=== PATIENT | male | born 2000 | race African-American/Black ===

== ENCOUNTER 2020-10-17 15:30 | Emergency (ER) | payer BC, SELFPAY ==
--- NOTE | ~2020-10-17 | XR_ITS ---
XR finger 3rd LT min 2V 10/17/2020 15:49 Indication: Left third finger pain after catching football Procedure: 4 views left third finger Comparison: No prior studies for comparison. Findings: There is a nondisplaced fracture dorsal base left third middle phalanx. Moderate adjacent s oft tissue swelling. No other fractures. No foreign bodies. Impression: 1: Nondisplaced fracture dorsal base left third middle phalanx. Reviewed, dictated and finalized at location A. PAK MACHINE OPERATOR Impression: 1: Nondisplaced fracture dorsal base left third middle phalanx.
[2020-10-17 15:38] VITALS: BP 125/61; PULSE 77; RESP 16; TEMP 36.6; O2SAT 100
--- NOTE | 2020-10-17 16:06 | ED.UPPEXIN ---
HPI - Extremity Injury (Upper) General Chief Complaint: Extremity Injury, Upper Stated Complaint: INJURED FINGER Time Seen by Provider: 10/17/20 16:00 Source: patient and RN notes reviewed Mode of arrival: ambulatory Limitations: no limitations History of Present Illness HPI narrative: Patient presents today complaining of an injury to the left third finger that was sustained yesterday while playing football. Patient believes he may have jammed the finger. Currently rates his pain 4/10 has been taking Aleve and applying ice without much relief. Denies numbness or tingling. Pain increases with movement. Patient has had the finger suman taped as well. MD complaint: injury to: left and finger Related Data Allergies Allergy/AdvReac Type Severity Reaction Status Date / Time No Known Allergies Allergy Verified 10/17/20 15:53 Review of Systems Review of Systems: Narrative: CONSTITUTIONAL: Denies body aches, fever, chills, or sweats. EYES: Denies visual changes, redness, or discharge. ENT: Denies rhinorrhea, congestion, sore throat, or otalgia. CARDIOVASCULAR: Denies chest pain, palpitations, or edema. RESPIRATORY: Denies cough or dyspnea. GASTROINTESTINAL: Denies abdominal pain, nausea, vomiting, or diarrhea. GENITOURINARY: Denies dysuria or hematuria. SKIN: Denies rash, itching, or wounds. MUSCULOSKELETAL: Denies back pain, or myalgia. + Left third finger injury NEUROLOGIC: Denies headache, numbness, tingling, or weakness. PSYCH: Denies depression or anxiety. [facility] Past Medical History Medical History Inguinal hernia Left wrist fracture Sickle cell anemia Surgical History Surgical History H/O inguinal hernia repair [place] teeth removed Social History Social History (Updated 10/08/20 @ 11:13 by Alisson Crook [facility] [address]) Smoking status: Never smoker Second hand tobacco smoke exposure: No Alcohol intake: never Substance use: never Substance use type: does not use Gender identity (if verbalized by the patient): Male Comments At time of signature, I have reviewed and agree with nursing past medical, surgical, social and family history unless otherwise noted. Please see nursing chart for further information. There is no relevant family history pertinent to the presenting complaint Exam Narrative: Exam Narrative: GENERAL: Well-appearing, well-nourished, and in no acute distress. HEAD: Normocephalic, atraumatic. EYES: EOMI. No redness or drainage. Conjunctivae normal. ENT: Mucous membranes pink and moist. NECK: Normal AROM. CHEST: No respiratory distress. EXTREMITIES: Left third finger: Tenderness to the PIP, middle and proximal phalanx as well as tenderness and mild to moderate edema to these areas. No ecchymosis or erythema noted. AROM is limited due to pain and swelling. Distal sensation intact. Capillary refill normal. Radial pulse normal. SKIN: Warm, dry, no rash. Capillary refill normal. Normal skin turgor. NEURO: No focal deficits. Alert and oriented x3. Gait steady. PSYCH: Normal affect. No signs of depression or anxiety. Course Vital Signs Vital signs: Vital Signs Temperature 98 F 10/17/20 15:38 Pulse Rate 77 10/17/20 15:38 Respiratory Rate 16 10/17/20 15:38 Blood Pressure 125/61 10/17/20 15:38 Pulse Oximetry 100 10/17/20 15:38 Temperature 98 F 10/17/20 15:38 Pulse Rate 77 10/17/20 15:38 Respiratory Rate 16 10/17/20 15:38 Blood Pressure 125/61 10/17/20 15:38 Pulse Oximetry 100 10/17/20 15:38 Reviewed. Pt has been instructed to follow up with his PCP regarding his elevated blood pressure today. Procedures Orthopedic Splinting/Casting Injury #1: Splinting/Casting Date: 10/17/20 Splinting/Casting Time: 16:15 Side: left Upper Extremity Injury Location: finger Splint: prefabricated Pre-Formed: meta
== END 2020-10-17 16:28 | disposition home or self-care (01) ==
PROVIDERS: Emergency Provider Nurse Practitioner; PCP Family Medicine
DX: S62.653A Nondisplaced fracture of middle phalanx of left middle finger, initial encounter for closed fracture (principal); D57.1 Sickle-cell disease without crisis; Y93.61 Activity, american tackle football; W22.01XA Walked into wall, initial encounter
CPT/HCPCS: 29130; 73140; 99214; G0463

== ENCOUNTER 2020-10-20 18:09 | Emergency (ER) | payer BC, SELFPAY ==
[2020-10-20 18:10] VITALS: BP 151/69; PULSE 82; RESP 19; TEMP 34.4; O2SAT 99
--- NOTE | 2020-10-20 18:53 | ED.GENADULT ---
HPI - General Adult General Chief complaint: Unspecified Stated complaint: sickle cell pain Time Seen by Provider: 10/20/20 18:38 Source: patient Mode of arrival: ambulatory Limitations: no limitations History of Present Illness HPI narrative: This is a 20 year old male that presents to the ER for sickle cell crisis. Reports he started to have pain this afternoon. Pain started in his low back. Reports he now has pain in his right leg. Reports this is typical for his pain crisis. No injuries or trauma. Reports he took an ibuprofen with little relief. He does not have a Securities Teller currently and is not on any medications for sickle cell. Denies fever, chest pain, shortness of breath, abdominal pain, vomiting, dysuria, weakness, or numbness. Related Data Allergies Allergy/AdvReac Type Severity Reaction Status Date / Time No Known Allergies Allergy Verified 10/20/20 18:36 Review of Systems Review of Systems: Narrative: CONSTITUTIONAL: Denies fever CARDIOVASCULAR: Denies chest pain RESPIRATORY: Denies dyspnea. GASTROINTESTINAL: Denies abdominal pain, nausea, vomiting GENITOURINARY: Denies dysuria MUSCULOSKELETAL: Reports back pain, joint pain, and myalgia. NEUROLOGIC: Denies numbness, or weakness. All systems reviewed & are unremarkable except as noted in HPI and below PMFSH Past Medical History Medical History Inguinal hernia Left wrist fracture Sickle cell anemia Surgical History Surgical History H/O inguinal hernia repair [place] teeth removed Social History Social History (Updated 10/08/20 @ 11:13 by Alisson Crook [facility]) Smoking status: Never smoker Second hand tobacco smoke exposure: No Alcohol intake: never Substance use: never Substance use type: does not use Gender identity (if verbalized by the patient): Male Exam Narrative: Exam Narrative: GENERAL: Well-appearing, well-nourished, and in no acute distress. HEAD: Normocephalic, atraumatic. EYES: EOMI. CHEST: Clear to auscultation. No respiratory distress. No wheezes rales or rhonchi HEART: Regular rate and rhythm. No murmur heard. Normal peripheral pulses. ABDOMEN: Soft, nontender, nondistended, normal active bowel sounds. BACK: No midline spinal tenderness EXTREMITIES: Normal range of motion. No edema or erythema. Normal DP pulses. Normal sensation SKIN: Warm, dry, no rash. NEURO: No focal deficits. Alert and oriented x3. PSYCH: Normal mood and affect Course Vital Signs Vital signs: Vital Signs Temperature 93.9 F L 10/20/20 18:10 Pulse Rate 82 10/20/20 18:10 Respiratory Rate 19 10/20/20 18:10 Blood Pressure 151/69 H 10/20/20 18:10 Pulse Oximetry 99 10/20/20 18:10 Temperature 98.2 F 10/20/20 19:49 Pulse Rate 82 10/20/20 18:10 Respiratory Rate 19 10/20/20 18:10 Blood Pressure 151/69 H 10/20/20 18:10 Pulse Oximetry 99 10/20/20 18:10 Medical Decision Making MDM Narrative Medical decision making narrative: Patient presents emergency department for sickle cell crisis. Reports pain in his leg which is usual for him. He is afebrile and nontoxic-appearing. CBC is without leukocytosis. Appears to be stable with hemoglobin of 12.9. Metabolic panel with mild elevation in creatinine above baseline, patient hydrated while in the ED. UA without evidence of infection. Patient given IV pain medication with relief. Will be sent home on oral medicines as needed. Was instructed on the importance of following up with a pt skilled. He was given warnings to return to the ER Vital Signs Vital Signs: Vital Signs Temperature 93.9 F L 10/20/20 18:10 Pulse Rate 82 10/20/20 18:10 Respiratory Rate 19 10/20/20 18:10 Blood Pressure 151/69 H 10/20/20 18:10 Pulse Oximetry 99 10/20/20 18:10 Temperature 98.2 F 10/20/20 19:49 Pulse Rate 82 10/20/20 18:10 Respiratory Rate 19 10/20/20 18
[2020-10-20 18:54] LABS: Basophils Absolute Auto 0.1 K/mm3 (0.0-0.1); Basophils Percent Auto 0.8 % (0.2-1.2); Eosinophils Percent Auto 0.3 % (0-4.4); Hemoglobin 12.9 g/dL (14.0-18.0); Immature Granulocyte Absolute 0.34 K/mm3 (0.00-0.031); Immature Granulocyte Percent A 3.8 % (0-0.5); Immature Reticulocyte Fraction 26.2 % (3.0-15.9); Lymphocytes Absolute Auto 1.53 K/mm3 (0.9-3.2); Lymphocytes Percent Auto 16.9 % (18.3-44.2); Mean Corpuscular HGB Conc 35.8 g/dl (32-36); Mean Corpuscular Hemoglobin 26.3 pg (26-34); Mean Corpuscular Volume 73.3 fl (80-100); Mean Platelet Volume 10.2 fl (7.4-10.4); Monocytes Absolute Auto 0.3 K/mm3 (0.1-0.6); Monocytes Percent Auto 3.4 % (2.6-8.5); Neutrophils Absolute Auto 6.8 K/mm3 (1.3-6.7); Neutrophils Percent Auto 74.8 % (45.5-73.1); Nucleated Red Blood Cells Absolute Auto 0.1 K/mm3 (0.0-0.012); Nucleated Red Blood Cells Perc 0.6 % (0.0-0.2); Platelet Count Result 145 k/mm3 (150-375); Red Blood Count 4.91 M/mm3 (4.6-6.20); Red Cell Distribution Width 14.8 % (11.5-14.5); Reticulocyte Hemoglobin Conten 31.1 pg (28.2-35.7); Reticulocyte Percent 3.92 % (0.7-4.3); Reticulocytes Absolute 0.19 B/L (32.2-175.7); White Blood Count 9.1 K/mm3 (4.5-10.0)
[2020-10-20] MEDS: SODIUM CHLORIDE 0.9% IV 1,000 ML 999 ML IV CONT ×2 (18:58→20:26)
[2020-10-20] MEDS: ONDANSETRON INJ 4 MG/2 ML VIAL IV PUSH (18:59)
[2020-10-20] MEDS: MORPHINE SULFATE (*CRX) 4 MG/ML INJ IV PUSH ×2 (18:59→20:26)
[2020-10-20 19:08] LABS: Albumin Level 4.5 g/dL (3.5-5.1); Alkaline Phosphatase 66 U/L (38-126); Anion Gap 11 mmol/L (8-16); Aspartate Amino Transferase 37 U/L (17-59); Bilirubin,Total 1.9 mg/dL (0.2-1.3); Blood Urea Nitrogen 18 mg/dL (9-20); Calcium 9.9 mg/dL (8.4-10.2); Carbon Dioxide 29 mmol/L (22-30); Chloride 100 mmol/L (98-107); Estimated CRCL calculation 81 ml/min; Estimated Glomerular Filt Rate > 60; Glucose 90 mg/dL (75-110); Potassium 4.1 mmol/L (3.4-5.0); Sodium 140 mmol/L (137-145)
[2020-10-20 19:17] LABS: Alanine Aminotransferase 27 U/L (4-50)
[2020-10-20 19:49] VITALS: TEMP 36.8
[2020-10-20 20:17] LABS: Add Urine Microscopic? NO; Appearance Urine Clear (Clear); Bilirubin Urine Negative (Negative); Blood Urine Negative (Negative); Color Urine Straw (Yellow); Glucose Urine UA Negative (Negative); Ketones Urine Negative (Negative); Leukocyte Esterase Ur Negative LEU/UL (Negative); Nitrate Urine Negative (Negative); Protein Urine Negative (Negative); Specific Grav Ur 1.014 (1.001-1.035); Urobilinogen Urine Negative mg/dL (<2.0)
[2020-10-20] MEDS: HYDROcodone/acetaminophen (*CRX) 5-325 MG TABLET 1 TAB PO (21:41)
[2020-10-20 22:11] VITALS: BP 138/64; PULSE 77; RESP 18; O2SAT 98
[2020-10-22 10:38] LABS: Lactate Dehydrogenase 513 U/L (313-618)
== END 2020-10-20 22:15 | disposition home or self-care (01) ==
PROVIDERS: Physician Assistant; Emergency Provider Emergency Medicine; PCP Family Medicine
DX: D57.00 Hb-SS disease with crisis, unspecified (principal)
CPT/HCPCS: 36415; 80053; 81003; 83615; 85025; 85046; 85610; 85730; 96361; 96365; 96375; 96376; 99284; A9270; J0131; J2270; J2405; J7030

== ENCOUNTER 2020-10-21 21:49 | Emergency (ER) | payer BC, SELFPAY ==
[2020-10-21 21:50] VITALS: BP 163/97; PULSE 86; RESP 18; TEMP 36.1; O2SAT 100
[2020-10-21] MEDS: SODIUM CHLORIDE 0.9% IV 1,000 ML 999 ML IV CONT (22:31)
[2020-10-21] MEDS: KETOROLAC 30 MG/ML VIAL (*BKC) IV PUSH (22:32)
[2020-10-21] MEDS: MORPHINE SULFATE (*CRX) 4 MG/ML INJ IV PUSH (22:32)
[2020-10-21 22:36] LABS: Basophils Percent Auto 0.3 % (0.2-1.2); Eosinophils Absolute Auto 0.1 K/mm3 (0-0.3); Hematocrit 38.9 % (42.0-52.0); Hemoglobin 13.9 g/dL (14.0-18.0); Immature Granulocyte Absolute 0.04 K/mm3 (0.00-0.031); Immature Granulocyte Percent A 0.5 % (0-0.5); Immature Reticulocyte Fraction 25.2 % (3.0-15.9); Lymphocytes Absolute Auto 1.41 K/mm3 (0.9-3.2); Lymphocytes Percent Auto 16.2 % (18.3-44.2); Mean Corpuscular HGB Conc 35.7 g/dl (32-36); Mean Corpuscular Hemoglobin 26.1 pg (26-34); Mean Corpuscular Volume 73.1 fl (80-100); Mean Platelet Volume 10.9 fl (7.4-10.4); Monocytes Absolute Auto 0.4 K/mm3 (0.1-0.6); Monocytes Percent Auto 4.1 % (2.6-8.5); Neutrophils Absolute Auto 6.8 K/mm3 (1.3-6.7); Neutrophils Percent Auto 77.9 % (45.5-73.1); Platelet Count Result 168 k/mm3 (150-375); Red Blood Count 5.32 M/mm3 (4.6-6.20); Red Cell Distribution Width 14.9 % (11.5-14.5); Reticulocyte Hemoglobin Conten 29.2 pg (28.2-35.7); Reticulocyte Percent 3.62 % (0.7-4.3); Reticulocytes Absolute 0.19 B/L (32.2-175.7); White Blood Count 8.7 K/mm3 (4.5-10.0)
--- NOTE | 2020-10-21 22:44 | ED.GENADULT ---
HPI - General Adult General Chief complaint: Unspecified Stated complaint: sickle cell pain Time Seen by Provider: 10/21/20 22:04 History of Present Illness HPI narrative: Patient is a 20-year-old gentleman who presents the emergency department with chief complaint of sickle cell pain crisis patient reports he no longer history of being diagnosed with sickle cell disorder and reports that he was seen in the emergency department yesterday for pain in his right hip and his right knee. The patient states this is the typical location where he develops pain states he was given IV pain medications yesterday and was discharged home. Currently does not have a local male infertility specialist. Patient reports that is only primary treatment regimen is folic acid and reports that he is not on any other long-term treatment medication. Patient denies fever denies chest pain denies shortness of breath. Related Data Allergies Allergy/AdvReac Type Severity Reaction Status Date / Time No Known Allergies Allergy Verified 10/21/20 22:42 Review of Systems Review of Systems: Narrative: A 10 system review of systems was completed on the patient and is negative except for what is stated in the HPI. Nursing and ancillary documentation was reviewed. [facility] Past Medical History Medical History Inguinal hernia Left wrist fracture Sickle cell anemia Sickle cell crisis Surgical History Surgical History H/O inguinal hernia repair [place] teeth removed Social History Social History Smoking status: Never smoker Second hand tobacco smoke exposure: No Alcohol intake: never Substance use: never Substance use type: does not use Gender identity (if verbalized by the patient): Male Sexual Orientation (if Verbalized by the Patient): Straight or Heterosexual Exam Narrative: Exam Narrative: GENERAL: Well-appearing, well-nourished, and in no acute distress. HEAD: Normocephalic, atraumatic. EYES: PERRLA and EOMI. ENT: Nares clear, no rhinorrhea or epistaxis. Mucous membranes moist. NECK: Supple. CHEST: Clear to auscultation. No respiratory distress. HEART: Regular rate and rhythm. No murmur heard. Normal peripheral pulses. ABDOMEN: Soft, nontender, nondistended, normal active bowel sounds. EXTREMITIES: Normal range of motion. No edema. SKIN: Warm, dry, no rash. NEURO: No focal deficits. Alert and oriented x3. PSYCH: Normal mood and affect. Course Vital Signs Vital signs: Vital Signs Temperature 36.1 C L 10/21/20 21:50 Pulse Rate 86 10/21/20 21:50 Respiratory Rate 18 10/21/20 21:50 Blood Pressure 163/97 H 10/21/20 21:50 Pulse Oximetry 100 10/21/20 21:50 Temperature 36.1 C L 10/21/20 21:50 Pulse Rate 86 10/21/20 21:50 Respiratory Rate 18 10/21/20 21:50 Blood Pressure 163/97 H 10/21/20 21:50 Pulse Oximetry 100 10/21/20 21:50 Medical Decision Making Vital Signs Vital Signs: Vital Signs Temperature 36.1 C L 10/21/20 21:50 Pulse Rate 86 10/21/20 21:50 Respiratory Rate 18 10/21/20 21:50 Blood Pressure 163/97 H 10/21/20 21:50 Pulse Oximetry 100 10/21/20 21:50 Temperature 36.1 C L 10/21/20 21:50 Pulse Rate 86 10/21/20 21:50 Respiratory Rate 18 10/21/20 21:50 Blood Pressure 163/97 H 10/21/20 21:50 Pulse Oximetry 100 10/21/20 21:50 Lab Data Result diagrams: 10/21/20 22:19 10/21/20 22:19 Labs: Lab Results 10/21/20 10/21/20 10/21/20 Range/Units 22:19 22:19 22:28 WBC 8.7 (4.5-10.0) K/mm3 RBC 5.32 (4.6-6.20) M/mm3 Hgb 13.9 L (14.0-18.0) g/dL Hct 38.9 L (42.0-52.0) % MCV 73.1 L (80-100) fl MCH 26.1 (26-34) pg MCHC 35.7 (32-36) g/dl RDW 14.9 H (11.5-14.5) % Plt Count 168 (150-375) k/mm3 MPV 10.9 H (7.4-10.4)
[2020-10-21 22:46] LABS: Alanine Aminotransferase 25 U/L (4-50); Albumin Level 4.7 g/dL (3.5-5.1); Alkaline Phosphatase 51 U/L (38-126); Anion Gap 8 mmol/L (8-16); Aspartate Amino Transferase 35 U/L (17-59); Blood Urea Nitrogen 13 mg/dL (9-20); Calcium 9.6 mg/dL (8.4-10.2); Carbon Dioxide 32 mmol/L (22-30); Chloride 101 mmol/L (98-107); Estimated CRCL calculation 81 ml/min; Estimated Glomerular Filt Rate > 60; Glucose 101 mg/dL (75-110); Potassium 3.8 mmol/L (3.4-5.0); Sodium 141 mmol/L (137-145)
[2020-10-22 00:51] VITALS: BP 132/74; PULSE 88; RESP 18; O2SAT 100
[2020-10-22] MEDS: MORPHINE SULFATE (*CRX) 4 MG/ML INJ IV PUSH (00:51)
== END 2020-10-22 00:53 | disposition home or self-care (01) ==
PROVIDERS: Emergency Provider Emergency Medicine; PCP Family Medicine
DX: D57.00 Hb-SS disease with crisis, unspecified (principal)
CPT/HCPCS: 36415; 80053; 83605; 85025; 85046; 96361; 96374; 96375; 96376; 99284; J1885; J2270; J7030

== ENCOUNTER 2021-08-16 11:06 | Emergency (ER) | payer BC, SELFPAY ==
[2021-08-16 11:08] VITALS: BP 136/81; PULSE 82; RESP 17; TEMP 36.7; O2SAT 98
[2021-08-16 12:03] LABS: Basophils Percent Auto 0.6 % (0.2-1.2); Eosinophils Absolute Auto 0.1 K/mm3 (0-0.3); Eosinophils Percent Auto 1.9 % (0-4.4); Hematocrit 36.3 % (42.0-52.0); Hemoglobin 13.1 g/dL (14.0-18.0); Immature Granulocyte Absolute 0.01 K/mm3 (0.00-0.031); Immature Granulocyte Percent A 0.2 % (0-0.5); Immature Reticulocyte Fraction 19.1 % (3.0-15.9); Lymphocytes Absolute Auto 1.27 K/mm3 (0.9-3.2); Lymphocytes Percent Auto 26.2 % (18.3-44.2); Mean Corpuscular HGB Conc 36.1 g/dl (32-36); Mean Corpuscular Hemoglobin 26.1 pg (26-34); Mean Corpuscular Volume 72.3 fl (80-100); Mean Platelet Volume 10.6 fl (7.4-10.4); Monocytes Absolute Auto 0.3 K/mm3 (0.1-0.6); Monocytes Percent Auto 6.4 % (2.6-8.5); Neutrophils Absolute Auto 3.1 K/mm3 (1.3-6.7); Neutrophils Percent Auto 64.7 % (45.5-73.1); Platelet Count Result 184 k/mm3 (150-375); Red Blood Count 5.02 M/mm3 (4.6-6.20); Red Cell Distribution Width 14.7 % (11.5-14.5); Reticulocyte Hemoglobin Conten 29.4 pg (28.2-35.7); Reticulocyte Percent 3.01 % (0.7-4.3); Reticulocytes Absolute 0.15 B/L (32.2-175.7); White Blood Count 4.8 K/mm3 (4.5-10.0)
[2021-08-16] MEDS: MORPHINE SULFATE (*CRX) 4 MG/ML INJ IV PUSH ×2 (12:04→15:19)
[2021-08-16] MEDS: SODIUM CHLORIDE 0.9% IV 1,000 ML 999 ML IV CONT (12:05)
[2021-08-16 12:22] LABS: Alanine Aminotransferase 19 U/L (4-50); Albumin Level 4.8 g/dL (3.5-5.1); Alkaline Phosphatase 44 U/L (38-126); Anion Gap 9 mmol/L (8-16); Aspartate Amino Transferase 30 U/L (17-59); Blood Urea Nitrogen 13 mg/dL (9-20); Calcium 9.5 mg/dL (8.4-10.2); Carbon Dioxide 26 mmol/L (22-30); Chloride 106 mmol/L (98-107); Creatine Kinase 110 U/L (55-170); Estimated CRCL calculation 93 ml/min; Estimated Glomerular Filt Rate > 60; Glucose 91 mg/dL (65-110); Lactate Dehydrogenase 448 U/L (313-618); Potassium 4.5 mmol/L (3.4-5.0); Sodium 141 mmol/L (137-145)
[2021-08-16 13:52] VITALS: BP 131/80; PULSE 67; RESP 14; O2SAT 98
--- NOTE | 2021-08-16 15:05 | ED.GENADULT ---
HPI - General Adult General Chief complaint: Unspecified <Jason Ruff PA-C - Last Filed: 08/16/21 15:10> Stated complaint: sickle cell crisis <Jason Ruff PA-C - Last Filed: 08/16/21 15:10> Time Seen by Provider: 08/16/21 11:26 <Jason Ruff PA-C - Last Filed: 08/16/21 15:10> Source: patient, RN notes reviewed and old records reviewed <Jason Ruff PA-C - Last Filed: 08/16/21 15:10> Mode of arrival: ambulatory <Jason Ruff PA-C - Last Filed: 08/16/21 15:10> Limitations: no limitations <Jason Ruff PA-C - Last Filed: 08/16/21 15:10> History of Present Illness HPI narrative: Patient is a 21-year-old male who presents with left calf pain leg pain noting that the pain is been present for the last couple of days believes it to be possibly related to his sickle cell disease he has been working out and believes that that may be causing the discomfort and exacerbation he denies other complaints injuries or trauma presents nondistressed has not taken anything other than ibuprofen for his symptoms he is followed by primary care and hematology <Jason Ruff PA-C - Last Filed: 08/16/21 15:10> Related Data Allergies/adverse reactions: Allergies Allergy/AdvReac Type Severity Reaction Status Date / Time No Known Allergies Allergy Verified 08/16/21 11:12 <Jason Ruff PA-C - Last Filed: 08/16/21 15:10> [facility] Past Medical History Medical History: Medical History Inguinal hernia Left wrist fracture Sickle cell anemia Sickle cell crisis <Jason Ruff PA-C - Last Filed: 08/16/21 15:10> Surgical History Surgical History: Surgical History H/O inguinal hernia repair [place] teeth removed <Jason Ruff PA-C - Last Filed: 08/16/21 15:10> Social History Social History: Social History Smoking status: Never smoker Second hand tobacco smoke exposure: No Alcohol intake: never Substance use: never Substance use type: does not use Gender identity (if verbalized by the patient): Male Sexual Orientation (if Verbalized by the Patient): Straight or Heterosexual <Jason Ruff PA-C - Last Filed: 08/16/21 15:10> Exam Narrative: GENERAL: Well-appearing, well-nourished, and in no acute distress. HEAD: Normocephalic, atraumatic. EYES: PERRLA and EOMI. ENT: Nares clear, no rhinorrhea or epistaxis. Mucous membranes moist. CHEST: Clear to auscultation. No respiratory distress. No wheezes rales or rhonchi HEART: Regular rate and rhythm. No murmur heard. Normal peripheral pulses. ABDOMEN: Soft, nontender, nondistended EXTREMITIES: Normal range of motion. No edema. SKIN: Warm, dry, no rash. NEURO: No focal deficits. Alert and oriented x3. Cranial nerves II through XII grossly intact. Neurovascularly intact. Capillary refill less than 2 seconds PSYCH: Normal mood and affect. <Jason Ruff PA-C - Last Filed: 08/16/21 15:10> Course Course Emergency Course: Patient evaluated the emergency department with sickle cell crisis related pain no concerning findings in the evaluation was hydrated given pain medicines feeling better at this time and comfortable to go home he is aware of case findings treatment plan and diagnosis provided with reasons to return ABCs and vital signs intact and stable afebrile nontoxic-appearing nondistressed <Jason Ruff PA-C - Last Filed: 08/16/21 15:10> Vital Signs Vital signs: Vital Signs Temperature 98.1 F 08/16/21 11:08 Pulse Rate 82 08/16/21 11:08 Respiratory Rate 17 08/16/21 11:08 Blood Pressure 136/81 08/16/21 11:08 Pulse Oximetry 98 08/16/21 11:08 Temperature 98.1 F 08/16/21 11:08 Pulse Rate 60 08/16/21 15:50 Respiratory Rate 14 08/16/21 15:50 Blood Pressure 1
[2021-08-16 15:31] VITALS: BP 129/74; PULSE 68; RESP 12; O2SAT 100
[2021-08-16 15:50] VITALS: PULSE 60; RESP 14; O2SAT 98
== END 2021-08-16 15:50 | disposition home or self-care (01) ==
PROVIDERS: Emergency Medicine Emergency Medical Services; Emergency Provider General Practice; PCP Family Medicine
DX: M79.662 Pain in left lower leg (principal); D57.00 Hb-SS disease with crisis, unspecified
CPT/HCPCS: 36415; 80053; 82550; 83615; 85025; 85046; 96361; 96374; 96376; 99284; J2270; J7030

== ENCOUNTER 2022-01-14 00:51 | Emergency (ER) | payer BC, SELFPAY ==
[2022-01-14] VITALS (7 sets, daily range): BP systolic 104–167; BP diastolic 54–90; PULSE 74–85; RESP 15–18; TEMP 37; O2SAT 96–99
--- NOTE | 2022-01-14 01:22 | ED.GENADULT ---
HPI - General Adult General Chief complaint: Unspecified Stated complaint: sickle cell crisis Time Seen by Provider: 01/14/22 01:01 Source: patient Mode of arrival: ambulatory Limitations: no limitations History of Present Illness HPI narrative: Patient is a 22-year-old male who presents the ED with report of left lower extremity pain. Patient reports he believes he is having a sickle cell crisis. He developed pain in his left lower extremity, worse above the knee around 6 PM last night. He states this is fairly typical of his sickle cell crisis he's had in the past, as he usually presents with pain in one limb. He does not take any medications currently for his sickle cell. He states several family members have the sickle cell trait but he is an only one with the disease. He tried taking ibuprofen 800 mg several hours prior to arrival without relief. He was able to ambulate into the ED. He states he last had a crisis 9 months ago. 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 Denies any fever, chills, chest pain, shortness of breath, headache, abdominal pain, nausea, vomiting, urinary symptoms, back pain. Related Data Allergies Allergy/AdvReac Type Severity Reaction Status Date / Time No Known Allergies Allergy Verified 01/14/22 01:02 Review of Systems Review of Systems: CONSTITUTIONAL: Denies fever, chills, or sweats. CARDIOVASCULAR: Denies chest pain. RESPIRATORY: Denies dyspnea. GASTROINTESTINAL: Denies abdominal pain, nausea, vomiting. MUSCULOSKELETAL: Reports left lower extremity pain. Denies back pain. NEUROLOGIC: Denies headache, numbness, or weakness. All systems reviewed & are unremarkable except as noted in HPI and below PMFSH Past Medical History Medical History Inguinal hernia Left wrist fracture Sickle cell anemia Sickle cell crisis Surgical History Surgical History H/O inguinal hernia repair [place] teeth removed Social History Social History Smoking status: Never smoker Second hand tobacco smoke exposure: No Alcohol intake: never Substance use: never Substance use type: does not use Gender identity (if verbalized by the patient): Male Sexual Orientation (if Verbalized by the Patient): Straight or Heterosexual Exam Narrative: GENERAL: Well appearing, well-nourished, non-toxic, in no acute distress. HEAD: Normocephalic, atraumatic. EYES: EOMI, conjunctivae clear bilaterally. NECK: Supple. No adenopathy, no masses. RESPIRATORY: Airway patent, respirations nonlabored. Clear to auscultation bilaterally, no rales, rhonchi, wheezing. CARDIOVASCULAR: Regular rate and rhythm without murmurs, rubs, or gallops. Pedal pulses 2+ and equal bilaterally. ABDOMINAL: Soft, nontender, nondistended, no hepatosplenomegaly. Normoactive BS. MUSCULOSKELETAL: Moves all extremities. No pain with palpation or ROM of LLE. Strength/ROM intact without gross deformities or TTP. No edema. No calf tenderness. SKIN: Warm, dry, normal color. No rashes. NEURO: A&O X3. Speech clear. Cranial nerves II-XII intact. Steady gait. No ataxic movements. PSYCHIATRIC: Flat affect. Appropriate mood. Normal interaction. Course Vital Signs Vital signs: Vital Signs Temperature 98.6 F 01/14/22 00:58 Pulse Rate 85 01/14/22 00:58 Respiratory Rate 18 01/14/22 00:58 Blood Pressure 167/90 H 01/14/22 00:58 Pulse Oximetry 97 01/14/22 00:58 Temperature 98.6 F 01/14/22 00:58 Pulse Rate 75 01/14/22 02:46 Respiratory Rate 15 01/14/22 02:46 Blood Pressure 134/77 01/14/22 02:46 Pulse Oximetry 98 01/14/22 02:46 Medical Decision Making [facility] Narrative Medical decision making narrative: Patient presenting with left lower extremity pain and believes he is experiencing a sickle cell crisis. No concerning findings on evaluation today. He
--- NOTE | 2022-01-14 01:39 | ECG_ITS ---
Measurements Intervals [place] Rate: 67 P: 37 NH: 200 QRS: 2 QRSD: 109 T: 11 QT: 354 QTc: 374 Interpretive Statements SINUS RHYTHM MINIMAL VOLTAGE CRITERIA FOR LVH, CONSIDER NORMAL VARIANT [MEETS CRITERIA IN ONE OF: R(aVL), S(V1), R(V5), R(V5/V6)+S(V1)] ABNORMAL ECG NO PREVIOUS ECG AVAILABLE FOR COMPARISON Electronically Signed On 01-14-2022 11:18:07 CDT by Griffin Cho M.D.
[2022-01-14] MEDS: KETOROLAC 30 MG/ML VIAL (*BKC) IV PUSH (01:55)
[2022-01-14] MEDS: SODIUM CHLORIDE 0.9% IV 1,000 ML 999 ML IV CONT (01:55)
[2022-01-14 02:09] LABS: Basophils Percent Auto 0.5 % (0.2-1.2); Eosinophils Absolute Auto 0.1 K/mm3 (0-0.3); Eosinophils Percent Auto 0.8 % (0-4.4); Hematocrit 36.9 % (42.0-52.0); Immature Granulocyte Absolute 0.03 K/mm3 (0.00-0.031); Immature Granulocyte Percent A 0.4 % (0-0.5); Lymphocytes Absolute Auto 1.66 K/mm3 (0.9-3.2); Mean Corpuscular HGB Conc 35.2 g/dl (32-36); Mean Corpuscular Hemoglobin 25.5 pg (26-34); Mean Corpuscular Volume 72.4 fl (80-100); Mean Platelet Volume 10.5 fl (7.4-10.4); Monocytes Absolute Auto 0.4 K/mm3 (0.1-0.6); Monocytes Percent Auto 5.2 % (2.6-8.5); Neutrophils Absolute Auto 5.7 K/mm3 (1.3-6.7); Neutrophils Percent Auto 72.1 % (45.5-73.1); Platelet Count Result 145 k/mm3 (150-375); Red Cell Distribution Width 14.5 % (11.5-14.5); White Blood Count 7.9 K/mm3 (4.5-10.0)
[2022-01-14 02:28] LABS: Alanine Aminotransferase 45 U/L (4-50); Albumin Level 4.9 g/dL (3.5-5.1); Alkaline Phosphatase 75 U/L (38-126); Anion Gap 7 mmol/L (8-16); Aspartate Amino Transferase 60 U/L (17-59); Bilirubin,Total 2.8 mg/dL (0.2-1.3); Blood Urea Nitrogen 18 mg/dL (9-20); Calcium 9.1 mg/dL (8.4-10.2); Carbon Dioxide 27 mmol/L (22-30); Chloride 104 mmol/L (98-107); Estimated CRCL calculation 85 ml/min; Estimated Glomerular Filt Rate > 60; Glucose 99 mg/dL (65-110); Potassium 4.4 mmol/L (3.4-5.0); Sodium 138 mmol/L (137-145)
[2022-01-14 02:32] LABS: Reticulocyte Hemoglobin Conten 27.6 pg (28.2-35.7); Reticulocyte Percent 3.12 % (0.7-4.3); Reticulocytes Absolute 0.16 B/L (32.2-175.7)
== END 2022-01-14 03:58 | disposition home or self-care (01) ==
PROVIDERS: Physician Assistant; Emergency Provider Emergency Medicine; PCP Family Medicine
DX: M79.605 Pain in left leg (principal); D57.1 Sickle-cell disease without crisis; R94.31 Abnormal electrocardiogram [ECG] [EKG]
CPT/HCPCS: 36415; 80053; 85025; 85046; 93005; 96361; 96374; 99284; J1885; J7030

== ENCOUNTER 2022-07-23 11:43 | Outpatient (CLI) | payer BC, SELFPAY ==
[2022-07-23 11:55] LABS: Eosinophils Absolute Auto 0.1 K/mm3 (0-0.3); Eosinophils Percent Auto 1.5 % (0-4.4); Hematocrit 37.8 % (42.0-52.0); Hemoglobin 13.2 g/dL (14.0-18.0); Immature Granulocyte Absolute 0.01 K/mm3 (0.00-0.031); Immature Granulocyte Percent A 0.3 % (0-0.5); Lymphocytes Absolute Auto 1.29 K/mm3 (0.9-3.2); Lymphocytes Percent Auto 32.3 % (18.3-44.2); Mean Corpuscular HGB Conc 34.9 g/dl (32-36); Mean Corpuscular Hemoglobin 25.1 pg (26-34); Mean Platelet Volume 10.3 fl (7.4-10.4); Monocytes Absolute Auto 0.3 K/mm3 (0.1-0.6); Monocytes Percent Auto 6.5 % (2.6-8.5); Neutrophils Absolute Auto 2.3 K/mm3 (1.3-6.7); Neutrophils Percent Auto 58.4 % (45.5-73.1); Platelet Count Result 178 k/mm3 (150-375); Red Blood Count 5.25 M/mm3 (4.6-6.20); Red Cell Distribution Width 14.8 % (11.5-14.5)
[2022-07-23 12:02] LABS: Platelet Estimate Adequate (Adequate); Schistocytes None Seen (NORMAL); Target Cells 1+ (NORMAL)
[2022-07-23 12:03] LABS: Poikilocytosis 1+ (NORMAL)
[2022-07-23 12:31] LABS: Alanine Aminotransferase 22 U/L (6-50); Albumin Level 4.8 g/dL (3.5-5.1); Alkaline Phosphatase 54 U/L (38-126); Anion Gap 10 mmol/L (8-16); Aspartate Amino Transferase 29 U/L (17-59); Blood Urea Nitrogen 13 mg/dL (9-20); Calcium 9.5 mg/dL (8.4-10.2); Carbon Dioxide 28 mmol/L (22-30); Chloride 102 mmol/L (98-107); Estimated Glomerular Filt Rate > 60; Glucose 93 mg/dL (65-110); Lactate Dehydrogenase 138 U/L (120-246); Potassium 4.2 mmol/L (3.4-5.0); Sodium 140 mmol/L (137-145)
== END 2022-07-23 11:44 | disposition home or self-care (01) ==
LOC: ANHLAB 11:43
PROVIDERS: PCP Family Medicine; Visit Provider Internal Medicine Hematology & Oncology
DX: D57.1 Sickle-cell disease without crisis (principal)
CPT/HCPCS: 36415; 80053; 83615; 85025

== ENCOUNTER 2022-07-29 09:11 | Outpatient (CLI) | payer BC, SELFPAY ==
--- NOTE | ~2022-07-29 | US_ITS ---
US abdomen complete EXAMINATION: US Abdomen Complete INDICATION: Splenomegaly. PROCEDURE: Realtime High Resolution abdomen ultrasound. COMPARISON: No prior studies for comparison FINDINGS: There is gallbladder sludge. No definite stones, gallbladder wall thickening or pericholecy stic fluid. Common bile duct measures 3 mm. Liver echotexture within normal limits without focal mass. Liver is enlarged measuring 18.3 cm. Pancr eas within normal limits. Pancreatic tail is obscured by bowel gas. Spleen is enlarged measuring 16 .4 cm. Renal echotexture is within normal limits bilaterally without hydronephrosis, contour deformin g mass or renal stone. Right kidney measures 11.2 cm. Left kidney measures 10.2 cm. Visualized aspects of the aorta and IVC are within normal limits. Portal vein is patent. No sonograph ic Corral's sign indicated by the technologist. IMPRESSION: 1: Hepatosplenomegaly. 2: Gallbladder sludge. Reviewed, dictated and finalized at location A.
== END 2022-07-29 09:12 | disposition home or self-care (01) ==
PROVIDERS: PCP Family Medicine; Visit Provider Internal Medicine Hematology & Oncology
DX: R16.1 Splenomegaly, not elsewhere classified (principal)
CPT/HCPCS: 76700

== ENCOUNTER 2022-10-17 14:49 | Emergency (ER) | payer BC, SELFPAY ==
[2022-10-17 14:56] VITALS: BP 144/76; PULSE 66; RESP 20; TEMP 36.9; O2SAT 100
--- NOTE | 2022-10-17 17:59 | ED.EXTPRO ---
HPI - Extremity Problem General Chief complaint: Extremity Problem,Nontraumatic Stated complaint: sickle cell crisis, left leg Time Seen by Provider: 10/17/22 17:50 History of Present Illness HPI Narrative: 22-year-old male with a history of sickle cell disease here for evaluation of left leg pain. Patient states the pain came on 3 days ago and has been relatively constant since. The pain moves from his left leg to his left ankle. Patient notes pain in left leg with previous sickle cell flareups, feels similar to today's pain. Attempted ibuprofen this morning without relief. No swelling, redness. No chest pain, shortness of breath, abdominal pain, fevers or chills, headaches or weakness. 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 Related Data Home Medications Medication Instructions Recorded Confirmed No Home Medications 03/14/22 03/14/22 Allergies Allergy/AdvReac Type Severity Reaction Status Date / Time No Known Allergies Allergy Verified 05/21/22 15:41 Review of Systems Review of Systems: Gen.: Denies fevers or chills Eyes: Denies eye pain or visual change ENT: Denies congestion Respiratory: Denies shortness of breath or cough CV: Denies chest pain or palpitations GI: Denies abdominal pain nausea, emesis or diarrhea denies burning, urgency, frequency or hematuria Musculoskeletal: Reports left leg pain Neuro: Denies numbness, tingling, weakness or focal weakness Skin: Denies rash Except as documented, all other systems reviewed and negative PMFSH Past Medical History Medical History Inguinal hernia Left wrist fracture Sickle cell anemia Sickle cell crisis Surgical History Surgical History H/O inguinal hernia repair [place] teeth removed Social History Social History Smoking status: Never smoker Second hand tobacco smoke exposure: No Alcohol intake: never Substance use: never Substance use type: does not use Gender identity (if verbalized by the patient): Male Sexual Orientation (if Verbalized by the Patient): Straight or Heterosexual Exam Narrative: APPEARANCE: Well appearing, no pain in distress, well-nourished. Head: Normocephalic and atraumatic. EYES: PERRLA/EOMI, conjunctivae clear NOSE: No nasal drainage EARS: External ear normal in appearance THROAT: Oropharynx is clear. Mucous membranes are moist. NECK: Supple. No adenopathy, no masses. RESPIRATORY: Airway patent, respirations nonlabored. Clear to auscultation bilaterally, no rales, rhonchi, wheezing. CARDIOVASCULAR: Strong DP and PT pulses bilaterally. Regular rate and rhythm without murmurs, rubs, or gallops. ABDOMINAL: Normoactive bowel sounds. Soft, nontender, nondistended. No rebound tenderness or guarding. MUSCULOSKELETAL: No bony tenderness to the or ankle. Extremities are warm and well-perfused. Moves all extremities well. No edema. NEURO: Normal speech. No focal neurologic deficits. SKIN: Skin is warm and dry. No rashes. PSYCHIATRIC: Normal affect/mood. Course Vital Signs Vital signs: Vital Signs Temperature 98.5 F 10/17/22 14:56 Pulse Rate 66 10/17/22 14:56 Respiratory Rate 20 10/17/22 14:56 Blood Pressure 144/76 H 10/17/22 14:56 Pulse Oximetry 100 10/17/22 14:56 Oxygen Delivery Room Air 10/17/22 14:56 Temperature 98.5 F 10/17/22 14:56 Pulse Rate 64 10/17/22 20:28 Respiratory Rate 16 10/17/22 20:28 Blood Pressure 158/77 H 10/17/22 20:28 Pulse Oximetry 100 10/17/22 20:28 Oxygen Delivery Room Air 10/17/22 14:56 MDM - Extremity (Nontraumatic) MDM Narrative Medical decision making narrative: 20-year-old male with history of sickle cell disease here for evaluation of left leg pain, which he states is similar to previous sickle cell flareups. Patient is nontoxic-appearing and has norm
[2022-10-17] MEDS: HYDROcodone/acetaminophen (*CRX) 5-325 MG TABLET 1 TAB PO (18:06)
[2022-10-17 19:49] LABS: Basophils Absolute Auto 0.1 K/mm3 (0.0-0.1); Basophils Percent Auto 0.8 % (0.2-1.2); Eosinophils Absolute Auto 0.1 K/mm3 (0-0.3); Eosinophils Percent Auto 1.9 % (0-4.4); Hematocrit 39.5 % (42.0-52.0); Hemoglobin 13.9 g/dL (14.0-18.0); Immature Granulocyte Absolute 0.03 K/mm3 (0.00-0.031); Immature Granulocyte Percent A 0.5 % (0-0.5); Lymphocytes Absolute Auto 1.65 K/mm3 (0.9-3.2); Lymphocytes Percent Auto 25.7 % (18.3-44.2); Mean Corpuscular HGB Conc 35.2 g/dl (32-36); Mean Corpuscular Hemoglobin 25.6 pg (26-34); Mean Corpuscular Volume 72.9 fl (80-100); Mean Platelet Volume 10.1 fl (7.4-10.4); Monocytes Absolute Auto 0.3 K/mm3 (0.1-0.6); Monocytes Percent Auto 4.5 % (2.6-8.5); Neutrophils Absolute Auto 4.3 K/mm3 (1.3-6.7); Neutrophils Percent Auto 66.6 % (45.5-73.1); Platelet Count Result 157 k/mm3 (150-375); Red Blood Count 5.42 M/mm3 (4.6-6.20); White Blood Count 6.4 K/mm3 (4.5-10.0)
[2022-10-17] MEDS: KETOROLAC 30 MG/ML VIAL (*BKC) IM (19:58)
[2022-10-17 20:00] LABS: Alanine Aminotransferase 41 U/L (6-50); Alkaline Phosphatase 49 U/L (38-126); Anion Gap 5 mmol/L (8-16); Aspartate Amino Transferase 34 U/L (17-59); Bilirubin,Total 1.9 mg/dL (0.2-1.3); Blood Urea Nitrogen 11 mg/dL (9-20); Calcium 9.3 mg/dL (8.4-10.2); Carbon Dioxide 29 mmol/L (22-30); Chloride 102 mmol/L (98-107); Estimated CRCL calculation 104 ml/min; Estimated Glomerular Filt Rate > 60; Glucose 84 mg/dL (65-110); Potassium 4.3 mmol/L (3.4-5.0); Sodium 136 mmol/L (137-145)
[2022-10-17 20:08] LABS: Reticulocyte Percent 2.38 % (0.7-4.3); Reticulocytes Absolute 0.12 B/L (32.2-175.7)
[2022-10-17 20:09] LABS: Immature Reticulocyte Fraction 21.3 % (3.0-15.9); Platelet Estimate Adequate (Adequate); Reticulocyte Hemoglobin Conten 28.3 pg (28.2-35.7)
[2022-10-17 20:10] LABS: Anisocytosis 1+ (NORMAL); Microcytosis 1+ (NORMAL); Ovalocytes 1+ (NORMAL); Poikilocytosis 1+ (NORMAL); Schistocytes None Seen (NORMAL); Target Cells 2+ (NORMAL)
[2022-10-17 20:28] VITALS: BP 158/77; PULSE 64; RESP 16; O2SAT 100
== END 2022-10-17 20:31 | disposition home or self-care (01) ==
PROVIDERS: Emergency Provider Physician Assistant; PCP Family Medicine
DX: D57.00 Hb-SS disease with crisis, unspecified (principal)
CPT/HCPCS: 36415; 80053; 85025; 85046; 96372; 99283; A9270; J1885

== ENCOUNTER 2023-04-21 17:25 | Emergency (ER) | payer BC, SELFPAY ==
[2023-04-21 17:30] VITALS: BP 136/69; PULSE 78; RESP 16; TEMP 36.5; O2SAT 100
[2023-04-21 18:19] LABS: Basophils Percent Auto 0.9 % (0.2-1.2); Eosinophils Absolute Auto 0.1 K/mm3 (0-0.3); Eosinophils Percent Auto 2.3 % (0-4.4); Hematocrit 38.4 % (42.0-52.0); Hemoglobin 13.3 g/dL (14.0-18.0); Immature Granulocyte Absolute 0.03 K/mm3 (0.00-0.031); Immature Granulocyte Percent A 0.7 % (0-0.5); Immature Platelet Fraction Pct 5.7 % (0.9-11.2); Immature Reticulocyte Fraction 22.1 % (3.0-15.9); Lymphocytes Absolute Auto 1.58 K/mm3 (0.9-3.2); Lymphocytes Percent Auto 37.1 % (18.3-44.2); Mean Corpuscular HGB Conc 34.6 g/dl (32-36); Mean Corpuscular Hemoglobin 25.4 pg (26-34); Mean Corpuscular Volume 73.3 fl (80-100); Mean Platelet Volume 10.1 fl (7.4-10.4); Monocytes Absolute Auto 0.2 K/mm3 (0.1-0.6); Monocytes Percent Auto 5.6 % (2.6-8.5); Neutrophils Absolute Auto 2.3 K/mm3 (1.3-6.7); Neutrophils Percent Auto 53.4 % (45.5-73.1); Platelet Count Result 152 k/mm3 (150-375); Red Blood Count 5.24 M/mm3 (4.6-6.20); Reticulocyte Hemoglobin Conten 28.5 pg (28.2-35.7); Reticulocyte Percent 3.62 % (0.7-4.3); Reticulocytes Absolute 0.19 M/mm3 (0.02-0.1); White Blood Count 4.3 K/mm3 (4.5-10.0)
[2023-04-21 18:31] LABS: Alanine Aminotransferase 34 U/L (6-50); Albumin Level 4.9 g/dL (3.5-5.1); Alkaline Phosphatase 55 U/L (38-126); Anion Gap 7 mmol/L (8-16); Aspartate Amino Transferase 32 U/L (17-59); Bilirubin,Total 2.1 mg/dL (0.2-1.3); Blood Urea Nitrogen 14 mg/dL (9-20); Calcium 9.5 mg/dL (8.4-10.2); Carbon Dioxide 30 mmol/L (22-30); Chloride 104 mmol/L (98-107); Estimated CRCL calculation 96 ml/min; Estimated Glomerular Filt Rate > 60; Glucose 91 mg/dL (65-110); Potassium 4.2 mmol/L (3.4-5.0); Sodium 141 mmol/L (137-145)
[2023-04-21 18:48] LABS: Platelet Estimate Adequate (Adequate)
[2023-04-21 18:49] LABS: Anisocytosis 1+ (NORMAL); Polychromasia 1+ (NORMAL); Schistocytes None Seen (NORMAL); Target Cells 2+ (NORMAL)
[2023-04-21] MEDS: MORPHINE SULFATE INJ (*CRX) 10 MG/ML AMP 4 MG IM (19:31)
[2023-04-21] MEDS: KETOROLAC 30 MG/ML VIAL (*BKC) IM (19:31)
--- NOTE | 2023-04-21 19:31 | ED.GENADULT ---
HPI - General Adult General Chief complaint: Unspecified Stated complaint: sickle cell crisis Time Seen by Provider: 04/21/23 19:19 History of Present Illness HPI narrative: Patient with history of sickle cell disease, with last episode of pain crisis occurring more than 6 months ago, presents here with pain in his right arm that started earlier in the day, he tried taking ibuprofen but is still having pain. This is typical for his pain crisis, he has no chest pain, shortness of breath, focal numbness or weakness Related Data Allergies Allergy/AdvReac Type Severity Reaction Status Date / Time No Known Allergies Allergy Verified 05/21/22 15:41 Review of Systems Review of Systems: CONST: No fever. HEENT: No sore throat C/V: No chest pain RESP: No cough GI: No abdominal pain : No dysuria. M/S: Right arm pain SKIN: No rash. NEURO: [No headache or focal numbness or weakness] PSYCH: [No depression] [facility] Past Medical History Medical History Inguinal hernia Left wrist fracture Sickle cell anemia Sickle cell crisis Surgical History Surgical History H/O inguinal hernia repair [place] teeth removed Social History Social History Smoking status: Never smoker Second hand tobacco smoke exposure: No Alcohol intake: never Substance use: never Substance use type: does not use Living arrangements: with family Occupation/Education: student Gender identity (if verbalized by the patient): Male Sexual Orientation (if Verbalized by the Patient): Straight or Heterosexual Exam Narrative: EXAMINATION OF ORGAN SYSTEMS/BODY AREAS: Constitutional: Vital signs per nursing GENERAL:[No acute distress, non-toxic appearing.] HEAD: Normal with no signs of head trauma. EYES: EOMI, conjunctiva normal ENT: Hearing grossly intact LUNGS: Nonlabored breathing. HEART: [Regular rate and rhythm] ABD: [Soft], [nontender to palpation] EXT: Normal range of motion, soft compartment, normal pulses SKIN: [No rashes or lesions.] NEURO: [Alert and oriented x 3. No gross focal sensory or strength deficits.] PSYCH: Normal affect Course Vital Signs Vital signs: Vital Signs Temperature 97.7 F 04/21/23 17:30 Pulse Rate 78 04/21/23 17:30 Respiratory Rate 16 04/21/23 17:30 Blood Pressure 136/69 04/21/23 17:30 Pulse Oximetry 100 04/21/23 17:30 Oxygen Delivery Room Air 04/21/23 17:30 Temperature 97.7 F 04/21/23 17:30 Pulse Rate 78 04/21/23 17:30 Respiratory Rate 16 04/21/23 17:30 Blood Pressure 136/69 04/21/23 17:30 Pulse Oximetry 100 04/21/23 17:30 Oxygen Delivery Room Air 04/21/23 17:30 Medical Decision Making MDM Narrative Medical decision making narrative: 23-year-old male with history of sickle cell crises presents here with pain that is consistent with his usual sickle cell pain to his right arm, he is well-appearing on exam, normal vitals, soft compartments, neurovascularly intact, normal range of motion. Labs within acceptable limits, I will give him a dose of Toradol and morphine here, on reevaluation he is feeling much more comfortable, I will give him a few doses until he can follow-up with his director software development for his pain crisis. He is to return if he has any pain that managed by this. He is agreeable with this plan. Vital Signs Vital Signs: Vital Signs Temperature 97.7 F 04/21/23 17:30 Pulse Rate 78 04/21/23 17:30 Respiratory Rate 16 04/21/23 17:30 Blood Pressure 136/69 04/21/23 17:30 Pulse Oximetry 100 04/21/23 17:30 Oxygen Delivery Room Air 04/21/23 17:30 Temperature 97.7 F 04/21/23 17:30 Pulse Rate 78 04/21/23 17:30 Respiratory Rate 16 04/21/23 17:30 Blood Pressure 136/69 04/21/23 17:30 Pulse Oximetry 100 04/21/23 17:30 Oxygen Deliv
== END 2023-04-21 20:24 | disposition home or self-care (01) ==
PROVIDERS: Emergency Medicine; Emergency Provider Emergency Medicine; PCP Family Medicine
DX: D57.00 Hb-SS disease with crisis, unspecified (principal)
CPT/HCPCS: 36415; 80053; 85025; 85046; 85055; 96372; 99284; J1885; J2270

== ENCOUNTER 2023-04-23 14:18 | Outpatient (CLI) | payer BC, SELFPAY ==
[2023-04-23 14:30] LABS: Basophils Absolute Auto 0.1 K/mm3 (0.0-0.1); Basophils Percent Auto 0.9 % (0.2-1.2); Eosinophils Absolute Auto 0.1 K/mm3 (0-0.3); Hematocrit 37.7 % (42.0-52.0); Hemoglobin 13.5 g/dL (14.0-18.0); Immature Granulocyte Absolute 0.01 K/mm3 (0.00-0.031); Immature Granulocyte Percent A 0.2 % (0-0.5); Lymphocytes Absolute Auto 1.67 K/mm3 (0.9-3.2); Lymphocytes Percent Auto 30.3 % (18.3-44.2); Mean Corpuscular HGB Conc 35.8 g/dl (32-36); Mean Corpuscular Hemoglobin 25.8 pg (26-34); Mean Corpuscular Volume 72.1 fl (80-100); Mean Platelet Volume 10.6 fl (7.4-10.4); Monocytes Absolute Auto 0.3 K/mm3 (0.1-0.6); Monocytes Percent Auto 6.2 % (2.6-8.5); Neutrophils Absolute Auto 3.3 K/mm3 (1.3-6.7); Neutrophils Percent Auto 60.4 % (45.5-73.1); Platelet Count Result 159 k/mm3 (150-375); Red Blood Count 5.23 M/mm3 (4.6-6.20); Red Cell Distribution Width 14.7 % (11.5-14.5); White Blood Count 5.5 K/mm3 (4.5-10.0)
[2023-04-23 14:35] LABS: Blood Urea Nitrogen 11 mg/dL (8-26); Carbon Dioxide 26 mmol/L (22-30); Chloride 101 mmol/L (98-109); Estimated Glomerular Filt Rate > 60; Glucose 87 mg/dL (70-105); Ionized Calcium (POC) 1.24 mmol/L (1.11-1.31); Potassium 3.9 mmol/L (3.5-4.9); Sodium 140 mmol/L (138-146)
[2023-04-23 15:29] LABS: Alanine Aminotransferase 33 U/L (6-50); Albumin Level 4.8 g/dL (3.5-5.1); Alkaline Phosphatase 46 U/L (38-126); Anion Gap 8 mmol/L (8-16); Aspartate Amino Transferase 28 U/L (17-59); Bilirubin,Total 2.8 mg/dL (0.2-1.3); Blood Urea Nitrogen 12 mg/dL (9-20); Calcium 9.4 mg/dL (8.4-10.2); Carbon Dioxide 30 mmol/L (22-30); Chloride 102 mmol/L (98-107); Estimated Glomerular Filt Rate > 60; Glucose 86 mg/dL (65-110); Sodium 140 mmol/L (137-145)
== END 2023-04-23 14:19 | disposition home or self-care (01) ==
LOC: ANHLAB 14:20
PROVIDERS: PCP Family Medicine; Visit Provider Internal Medicine Hematology & Oncology
DX: D57.20 Sickle-cell/Hb-C disease without crisis (principal)
CPT/HCPCS: 36415; 80047; 80053; 85025

== ENCOUNTER 2024-02-18 06:45 | Emergency (ER) | payer BC, SELFPAY ==
[2024-02-18 06:48] VITALS: BP 152/64; PULSE 83; RESP 22; TEMP 36.5; O2SAT 100
[2024-02-18 07:02] LABS: Basophils Percent Auto 0.6 % (0.2-1.2); Eosinophils Absolute Auto 0.1 K/mm3 (0-0.3); Eosinophils Percent Auto 1.3 % (0-4.4); Hematocrit 37.8 % (42.0-52.0); Hemoglobin 13.2 g/dL (14.0-18.0); Immature Granulocyte Absolute 0.02 K/mm3 (0.00-0.031); Immature Granulocyte Percent A 0.3 % (0-0.5); Lymphocytes Absolute Auto 2.31 K/mm3 (0.9-3.2); Lymphocytes Percent Auto 34.1 % (18.3-44.2); Mean Corpuscular HGB Conc 34.9 g/dl (32-36); Mean Corpuscular Hemoglobin 25.6 pg (26-34); Mean Corpuscular Volume 73.4 fl (80-100); Mean Platelet Volume 10.1 fl (7.4-10.4); Monocytes Absolute Auto 0.4 K/mm3 (0.1-0.6); Monocytes Percent Auto 5.3 % (2.6-8.5); Neutrophils Percent Auto 58.4 % (45.5-73.1); Platelet Count Result 161 k/mm3 (150-375); Red Blood Count 5.15 M/mm3 (4.6-6.20); Red Cell Distribution Width 14.5 % (11.5-14.5); White Blood Count 6.8 K/mm3 (4.5-10.0)
--- NOTE | 2024-02-18 07:06 | ED.GENADULT ---
HPI - General Adult General Chief complaint: Unspecified Stated complaint: sickle cell crisis Time Seen by Provider: 02/18/24 06:58 Source: patient Mode of arrival: ambulatory Limitations: no limitations History of Present Illness HPI narrative: Patient presents with right lower extremity pain since yesterday. He has a history of sickle cell and believes this pain is consistent with a sickle cell crisis. He notes that he has not have sickle cell crisis in a while and otherwise it is well controlled. Does have Sumiton tablets available to be used p.r.n. although this was last filled a long time ago. He states that he has 2 remaining after taking 1 last night, last dose at blood 11:00 p.m.. He denies any trauma. He does not use any urea/disease modifying therapy at baseline. He normally takes ibuprofen as needed if pain is beginning and then goes to his Sumiton tablets p.r.n.. His inspection machine tender is here at [facility] but he has not seen them in a while. No recent surgeries or immobilization. No history of DVT or PE. 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 No paresthesias Related Data Allergies Allergy/AdvReac Type Severity Reaction Status Date / Time No Known Allergies Allergy Verified 02/18/24 06:52 PMFSH Past Medical History Medical History Inguinal hernia Left wrist fracture Sickle cell anemia Sickle cell crisis Surgical History Surgical History (Updated 02/18/24 @ 20:53 by Shelley Cheek MD) H/O inguinal hernia repair S/P ACL repair 2020 [place] teeth removed Social History Social History Smoking status: Never smoker Second hand tobacco smoke exposure: No Alcohol intake: never Substance use: never Substance use type: does not use Living arrangements: with family Occupation/Education: student Gender identity (if verbalized by the patient): Male Sexual Orientation (if Verbalized by the Patient): Straight or Heterosexual Exam Narrative: GENERAL: Well-appearing, well-nourished, and in no acute distress. HEAD: Normocephalic, atraumatic. EYES: Non injected, non icteric ENT: Nares clear, no rhinorrhea or epistaxis. NECK: Supple. CHEST: Speaking in full sentences. No respiratory distress. HEART: Regular rate and rhythm. . ABDOMEN: Soft, nondistended. EXTREMITIES: Normal range of motion. No edema. 5/5 strength ankle dorsiflexion/plantarflexion. SKIN: Warm, dry, no rash. NEURO: No focal deficits. Alert and oriented x3. PSYCH: Normal mood and affect. Course Vital Signs Vital signs: Vital Signs Temperature 97.7 F 02/18/24 06:48 Pulse Rate 83 02/18/24 06:48 Respiratory Rate 22 H 02/18/24 06:48 Blood Pressure 152/64 H 02/18/24 06:48 Pulse Oximetry 100 02/18/24 06:48 Oxygen Delivery Room Air 02/18/24 06:48 Temperature 97.7 F 02/18/24 06:48 Pulse Rate 78 02/18/24 09:11 Respiratory Rate 15 02/18/24 09:11 Blood Pressure 143/71 H 02/18/24 09:11 Pulse Oximetry 99 02/18/24 09:11 Oxygen Delivery Room Air 02/18/24 06:48 Medical Decision Making MDM Narrative Medical decision making narrative: Patient presents with right lower extremity pain. He believes this is consistent with a sickle cell crisis. In the ED he is initially reported to be mildly tachypneic with slight hypertension. No tachypneic on exam. Prescription drug monitoring program database is reviewed and shows patient last filled tablets of an opiate in March of 2023 (short course by ED provider followed by 60 tablets prescribed by inspection machine tender) with no interval fills; just as he described. He states he only has 2 tablets remaining. Patient will be given pain medications including opiate. Patient does note some improvement though not resolution after 1st dose upon reassessment.
[2024-02-18 07:13] LABS: Alanine Aminotransferase 28 U/L (6-50); Albumin Level 4.8 g/dL (3.5-5.1); Alkaline Phosphatase 69 U/L (38-126); Anion Gap 8 mmol/L (4-12); Aspartate Amino Transferase 26 U/L (17-59); Bilirubin,Total 1.7 mg/dL (0.2-1.3); Blood Urea Nitrogen 21 mg/dL (9-20); Calcium 9.4 mg/dL (8.4-10.2); Carbon Dioxide 26 mmol/L (22-30); Chloride 104 mmol/L (98-107); Estimated CRCL calculation 95 ml/min; Estimated Glomerular Filt Rate > 60; Glucose 97 mg/dL (65-110); Potassium 3.9 mmol/L (3.4-5.0); Sodium 138 mmol/L (137-145)
[2024-02-18 07:22] LABS: Platelet Estimate Adequate (Adequate); Schistocytes None Seen
[2024-02-18 07:23] LABS: Hypochromasia 1+; Target Cells 1+
[2024-02-18 07:24] LABS: Microcytosis 1+ (NORMAL)
[2024-02-18] MEDS: SODIUM CHLORIDE 0.9% IV 1,000 ML 999 ML IV CONT (07:32)
[2024-02-18] MEDS: HYDROmorphone HCL INJ (*CRX) 1 MG/ML SYR 0.5 MG IV PUSH ×2 (07:33→08:31)
[2024-02-18] MEDS: KETOROLAC 15 MG/ML VIAL (*BKC) IV PUSH (07:33)
[2024-02-18 07:34] VITALS: BP 142/70; PULSE 83; RESP 17; O2SAT 99
[2024-02-18 08:14] LABS: D Dimer 0.35 ug/mL (<0.48)
[2024-02-18 08:25] VITALS: BP 145/73; PULSE 80; RESP 16; O2SAT 98
[2024-02-18 09:11] VITALS: BP 143/71; PULSE 78; RESP 15; O2SAT 99
== END 2024-02-18 09:48 | disposition home or self-care (01) ==
PROVIDERS: Emergency Medicine; Emergency Provider Student in an Organized Health Care Education/Training Program; PCP Family Medicine
DX: D57.00 Hb-SS disease with crisis, unspecified (principal); M79.604 Pain in right leg; D50.9 Iron deficiency anemia, unspecified
CPT/HCPCS: 36415; 80053; 85025; 85380; 96361; 96374; 96375; 96376; 99284; J1170; J1885; J7030

== ENCOUNTER 2024-07-02 12:33 | Emergency (ER) | payer BC, SELFPAY ==
[2024-07-02 12:34] VITALS: BP 156/88; PULSE 94; RESP 19; TEMP 36.8; O2SAT 100
[2024-07-02 12:46] LABS: Basophils Absolute Auto 0.1 K/mm3 (0.0-0.1); Eosinophils Absolute Auto 0.1 K/mm3 (0-0.3); Eosinophils Percent Auto 1.7 % (0-4.4); Hematocrit 35.9 % (42.0-52.0); Hemoglobin 12.8 g/dL (14.0-18.0); Immature Granulocyte Absolute 0.03 K/mm3 (0.00-0.031); Immature Granulocyte Percent A 0.6 % (0-0.5); Lymphocytes Absolute Auto 1.48 K/mm3 (0.9-3.2); Lymphocytes Percent Auto 28.5 % (18.3-44.2); Mean Corpuscular HGB Conc 35.7 g/dl (32-36); Mean Corpuscular Hemoglobin 25.9 pg (26-34); Mean Corpuscular Volume 72.5 fl (80-100); Mean Platelet Volume 10.6 fl (7.4-10.4); Monocytes Absolute Auto 0.3 K/mm3 (0.1-0.6); Monocytes Percent Auto 6.6 % (2.6-8.5); Neutrophils Absolute Auto 3.2 K/mm3 (1.3-6.7); Neutrophils Percent Auto 61.6 % (45.5-73.1); Platelet Count Result 150 k/mm3 (150-375); Red Blood Count 4.95 M/mm3 (4.6-6.20); Red Cell Distribution Width 14.8 % (11.5-14.5); White Blood Count 5.2 K/mm3 (4.5-10.0)
[2024-07-02 12:56] LABS: Alanine Aminotransferase 42 U/L (6-50); Albumin Level 4.9 g/dL (3.5-5.1); Alkaline Phosphatase 55 U/L (38-126); Anion Gap 14 mmol/L (4-12); Aspartate Amino Transferase 34 U/L (17-59); Bilirubin,Total 1.7 mg/dL (0.2-1.3); Blood Urea Nitrogen 14 mg/dL (9-20); Calcium 9.3 mg/dL (8.4-10.2); Carbon Dioxide 24 mmol/L (22-30); Chloride 102 mmol/L (98-107); Estimated CRCL calculation 91 ml/min; Estimated Glomerular Filt Rate > 60; Glucose 99 mg/dL (65-110); Sodium 140 mmol/L (137-145)
[2024-07-02 13:07] LABS: INR 1.1; Prothrombin Time 14.1 Seconds (11.1-14.7)
[2024-07-02 13:08] LABS: Partial Thromboplastin Time 30.8 Seconds (22.3-36.8)
[2024-07-02 14:15] VITALS: BP 154/89; PULSE 92; RESP 17; TEMP 36.7; O2SAT 100
--- NOTE | 2024-07-02 14:23 | ED.GIBLEED ---
HPI - GI Bleed General Chief complaint: GI Bleed Stated complaint: vomiting blood Time Seen by Provider: 07/02/24 14:13 Source: patient Mode of arrival: ambulatory Limitations: no limitations History of Present Illness HPI Narrative: patient presents with multiple complaints. patient states he has had a sore throat week. He also had a cough that then resolved. He has intermittently had rhinorrhea. in addition he has been having nausea. He typically lives with his mother she is prone strep infections but she is currently out of town so he recently went to his his primary care physician tested negative COVID and strep. then started having intermittent epigastric abdominal pain subjective fever and woke up this morning vomiting. He had 3 episodes total of emesis with last 1 having hematemesis dark red bloody vomit. his last oral intake was 11:00 p.m. when he had [employer] and prior to that he had had spicy Doritos and pizza with sauce in the afternoon. No recent steroids or anticoagulation or alcohol. This has never happened before. Does not regularly follow with a railroad cook. No prior EGD or colonoscopy. He has a history of epistaxis and later bleeding from his eyes that he had evaluated by ENT. Related Data Allergies Allergy/AdvReac Type Severity Reaction Status Date / Time No Known Allergies Allergy Verified 07/02/24 12:36 [facility] Past Medical History Medical History Inguinal hernia Left wrist fracture Sickle cell anemia Sickle cell crisis Surgical History Surgical History H/O inguinal hernia repair S/P ACL repair 2020 [place] teeth removed Social History Social History (Updated 07/03/24 @ 08:44 by Shelley Cheek MD) Smoking status: Never smoker Second hand tobacco smoke exposure: No Alcohol intake: never Substance use: never Substance use type: does not use Living arrangements: with family Additional living arrangements comments: Mother Occupation/Education: student Gender identity (if verbalized by the patient): Male Sexual Orientation (if Verbalized by the Patient): Straight or Heterosexual Exam Narrative: GENERAL: Well-appearing, well-nourished, and in no acute distress. HEAD: Normocephalic, atraumatic. EYES: Non injected, non icteric ENT: Nares clear, no rhinorrhea or epistaxis. posterior oropharynx clear without kendal or dried blood. Posterior oropharynx with very mild erythema. No tonsillar hypertrophy or exudate. Uvula midline. No trismus. NECK: Supple. CHEST: Speaking in full sentences. No respiratory distress. Clear to auscultation bilaterally HEART: Regular rate and rhythm. . ABDOMEN/GI: Soft, nondistended. rectal exam performed grossly normal stool on gloved lubricated finger. Guiaic/FOBT negative. EXTREMITIES: Normal range of motion. No lower extremity edema. SKIN: Warm, dry, no rash. NEURO: No focal deficits. Alert and oriented x3. PSYCH: Normal mood and affect. Course Vital Signs Vital signs: Vital Signs Temperature 98.2 F 07/02/24 12:34 Pulse Rate 94 07/02/24 12:34 Respiratory Rate 19 07/02/24 12:34 Blood Pressure 156/88 H 07/02/24 12:34 Pulse Oximetry 100 07/02/24 12:34 Oxygen Delivery Room Air 07/02/24 12:34 Temperature 98.3 F 07/02/24 16:02 Pulse Rate 81 07/02/24 18:54 Respiratory Rate 17 07/02/24 18:54 Blood Pressure 134/72 07/02/24 18:54 Pulse Oximetry 98 07/02/24 18:54 Oxygen Delivery Room Air 07/02/24 12:34 MDM - GI Bleed MDM Narrative Medical decision making narrative: patient presents with multiple complaints. He has been feeling unwell all week symptoms started with a sore throat and rhinorrhea as well cough nausea. This morning had 3 episodes emesis with last being bloody. Patient does have pictures and it does appear that this was hematemesis. In the emergen
[2024-07-02] MEDS: PANTOPRAZOLE SODIUM IV 40 MG VIAL 80 MG IV PUSH (14:55)
[2024-07-02 15:03] LABS: Lactic Acid Reflex 1.1 mmol/L (0.7-2.0)
[2024-07-02 15:17] LABS: Strep Group A RT-PCR NOT DETECTED (Negative)
[2024-07-02 15:22] VITALS: BP 141/85; BP 144/80; BP 149/83; PULSE 86; PULSE 88; PULSE 92
[2024-07-02] MEDS: FAMOTIDINE 20 MG/2 ML VIAL IV PUSH (16:01)
[2024-07-02 16:02] VITALS: BP 131/79; PULSE 75; RESP 18; TEMP 36.8; O2SAT 99
[2024-07-02] MEDS: SODIUM CHLORIDE 0.9% IV 1,000 ML 999 ML IV CONT (16:02)
[2024-07-02 17:30] LABS: Influenza A QL RT-PCR Negative (Negative); Influenza B QL RT-PCR Negative (Negative); RSV RNA, RT-PCR Negative (Negative); SARS-CoV-2 RNA PCR Positive (Negative)
[2024-07-02 18:54] VITALS: BP 134/72; PULSE 81; RESP 17; O2SAT 98
== END 2024-07-02 18:55 | disposition home or self-care (01) ==
PROVIDERS: Student in an Organized Health Care Education/Training Program; Emergency Provider Student in an Organized Health Care Education/Training Program; PCP Family Medicine
DX: U07.1 COVID-19 (principal); K92.0 Hematemesis; K29.70 Gastritis, unspecified, without bleeding; D57.1 Sickle-cell disease without crisis
CPT/HCPCS: 36415; 80053; 83605; 85025; 85610; 85730; 86850; 86900; 86901; 87637; 87651; 96361; 96374; 96375; 99284; J2470; J7030

== ENCOUNTER 2025-05-27 03:12 | Emergency (ER) | payer BC, SELFPAY ==
--- OUTSIDE RECORDS SUMMARY | 2025-05-27 03:13 | XMS_ITS | Clinical Summary ---
Author Organization [facility] [address] Address [address] [place] [id number] Care Team Providers Care Special Education Assistant Name Role Phone Yousuf Castro MD Primary Care Provider Shalonda Salmon Unavailable [phone] Allergies No known active allergies Medications famotidine (PEPCID) 40 mg tablet Take 1 tablet (40 mg total) by mouth nightly as needed for heartburn 30 tablet 1 Active azithromycin (ZITHROMAX) 250 mg tablet Take 2 tablets the first day, then 1 tablet daily for 4 days 6 tablet 1 Active COVID-19 test specimen collect misc as directed 1 Active oxyCODONE-aceta minophen (PERCOCET) 5-325 mg per tablet Take 1 tablet by mouth every 4 (four) hours as needed 1 Active Active Problems Problem Noted Date Diagnosed Date Rupture of anterior cruciate ligament of right k nee 03/01/2021 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 03/01/20 21 Herpesviral gingivostomatitis and pharyngotonsil litis 12/09/2019 Lymphadenopathy 12/08/2019 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 [employer] Gender Identity Not on file Sexual Orientation Not on file Obstetrics History Last Filed Vital Signs Vital Sign Reading Time Taken Comments Blood Pressure 144/85 09/12/2021 3:55 PM [employer] Pulse 68 09/12/2021 3:55 PM [employer] Temperature 37.6 C (99.7 F) 04/06/2021 4:35 PM CDT Respiratory Rate 16 04/06/2021 9:30 PM CDT Oxygen Saturation 96% 04/06/2021 10: 05 PM CDT Inhaled Oxygen Concentration - - Weight 96.1 kg (211 lb 14.4 oz) 09/12/2021 3:55 PM [employer] Height 180.3 cm (5' 11) 09/12/2021 3:55 PM [employer] Body Mass Index 29.55 09/12/2021 3:55 PM [employer] Plan of Treatment Health Maintenance Due Date Last Done Comments Depression Screening 2000 Hepatitis C Screening 2000 Meningococcal B Vaccine (1 o f 5 - Increased Risk) 01/04/2010 HPV Vaccines (1 - Male 3-dos e series) 01/04/2015 Regular Well Visit/Exam 18-64 01/04/2018 DTaP/Tdap/Td Vaccine (6 - Td or Tdap) 06/18/2021 06/18/2011, 06/05/2005, 06/05/2005, Additional history exists Pneumococcal vaccine <65 (3 of 3 - PPSV23, PCV20 or PCV21) 12/10/2021 06/13/2019, 12/10/2016 Influenza Vaccine (#1) 2025 Varicella Vaccines Completed 05/23/2013, 04/12/2002 Hepatitis B Screening Completed 06/13/2019 , 08/12/2002, 2000, Additional history exists Medical Devices Implanted Type Area Artificial Cherry Maker Device Identifier Shelf Expiration Date Model / Serial / Lot [employer] Ar-2324bcc Swivelock C 4.75mm 19.1mm Closed Eyelet Vent [place] Suture - [id number] Implanted:Qty: 1 on 03/21/2021 by Hussain Marrufo MD at [facility] Right: Knee [employer] 11/25/2024 AR-[id number] / / [id number] [employer] Ar-1588-Rtt Device Fxatn Tightrope Fibertag Acl Right Disp - [id number] Implanted:Qty: 1 on 03/21/2021 by Hussain Marrufo MD at [facility] Right: Knee [employer] 12/23/2025 AR-1588-RTT / / [id number] [employer] Ar-1588-Lovely Device Fxatn Tightrope Fibertag Acl Abs Disp - [id number] Implanted:Qty: 1 on 03/21/2021 by Hussain Marrufo MD at [facility] Right: Knee [employer] 12/23/2025 AR-1588-LOVELY / / [id number] [employer] Ar-1588tb Tightrope 12mm 8mm Attachable Slot Acl Button Fixation - [id number] Implanted:Qty: 1 on 03/21/2021 by Hussain Marrufo MD at [facility] Right: Knee [employer] 12/23/2025 AR-[id number] / / [id number] Insurance [facility] [employer] ACCESS BLUE Local Reputation OOS [place] [place] [employer] ACCESS OOS Care Teams Special Education Assistant Relationship Specialty Start Date End Date Yousuf Castro MD [address] [place] [address] PCP - General Family Medicine 03/01/21 Shalonda Salmon PA [address] [place] [address] Physician Workers Compensation Claims Specialist Orthopedic Surgery 03/21/21
--- OUTSIDE RECORDS SUMMARY | 2025-05-27 03:13 | XMS_ITS | Clinical Summary ---
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 07/23/2022 Social History Tobacco Use Types Packs/Day Years Used Date Smoking Tobacco: Never Tobacco Cessation:Counseling Given: Not Answered Sex and Gender Information Value Date Recorded Sex Assigned at Not on file Legal Sex Male 10:07 AM CDT Gender Identity Not on file Sexual Orientation Not on file Last Filed Vital Signs Vital Sign Reading Time Taken Comments Blood Pressure 132/71 04/23/2023 2:34 PM CDT Pulse 66 04/23/2023 2:34 PM CDT Temperature 36 C (96.8 F) 04/23/2023 2:34 PM CDT Respiratory Rate 10 04/23/2023 2:34 PM CDT Oxygen Saturation 97% 04/23/2023 2:34 PM CDT Inhaled Oxygen Concentration - - Weight 98.9 kg (218 lb) 04/23/2023 2:34 PM CDT Height 180.3 cm (5' 11) 04/23/2023 2:34 PM CDT Body Mass Index 30.4 04/23/2023 2:34 PM CDT Plan of Treatment Health Maintenance Due Date Last Done Comments HPV VACCINES (1 - Male 3-dos e series) 01/04/2015 DTAP/TDAP/TD VACCINES (6 - T d or Tdap) 06/18/2021 06/18/2011, 06/05/2005, 2000, Additional history exists INFLUENZA VACCINE (#1) 2025 HEPATITIS B VACCINES Completed 08/12/2002, 2000, 2000 Insurance [facility] [employer] ACCESS CHOICE Care Teams Diversified Crops Supervisor Relationship Specialty Start Date End Date Yousuf Castro MD [address] [facility] [address] [place] [id number] PCP - General Family Practice 07/23/22
--- OUTSIDE RECORDS SUMMARY | 2025-05-27 03:13 | XMS_ITS | Referral Summary ---
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 Gender Identity Not on file Sexual Orientation Not on file Last Filed Vital Signs Vital Sign Reading Time Taken Comments Blood Pressure 144/85 09/12/2021 3:55 PM YARN DRY ROOM WORKER Pulse 68 09/12/2021 3:55 PM YARN DRY ROOM WORKER Temperature 37.6 C (99.7 F) 04/06/2021 4:35 PM CDT Respiratory Rate 16 04/06/2021 9:30 PM CDT Oxygen Saturation 96% 04/06/2021 10: 05 PM CDT Inhaled Oxygen Concentration - - Weight 96.1 kg (211 lb 14.4 oz) 09/12/2021 3:55 PM YARN DRY ROOM WORKER Height 180.3 cm (5' 11) 09/12/2021 3:55 PM YARN DRY ROOM WORKER Body Mass Index 29.55 09/12/2021 3:55 PM YARN DRY ROOM WORKER Plan of Treatment Not on file Medical Devices Implanted Type Area Display Fabricator Device Identifier Shelf Expiration Date Model / Serial / Lot [employer] Ar-2324bcc Swivelock C 4.75mm 19.1mm Closed Eyelet Vent [place] Suture - [id number] Implanted:Qty: 1 on 03/21/2021 by Hussain Marrufo MD at [facility] Right: Knee [employer] 11/25/2024 AR-2324BCC / / [id number] [employer] Ar-1588-Rtt Device Fxatn Tightrope Fibertag Acl Right Disp - [id number] Implanted:Qty: 1 on 03/21/2021 by Hussain Marrufo MD at [facility] Right: Knee [employer] 12/23/2025 AR-1588-RTT / / [id number] [employer] Ar-1588-Lovely Device Fxatn Tightrope Fibertag Acl Abs Disp - [id number] Implanted:Qty: 1 on 03/21/2021 by Hussain Marrufo MD at [facility] Right: Knee [employer] 12/23/2025 AR-1588-LOVELY / / [id number] [employer] Ar-1588tb Tightrope 12mm 8mm Attachable Slot Acl Button Fixation - [id number] Implanted:Qty: 1 on 03/21/2021 by Hussain Marrufo MD at [facility] Right: Knee [employer] 12/23/2025 AR-1588TB / / [id number] Insurance [employer] [place] [facility] ACCESS BLUE ACCESS [place] BL[place]UE ACCESS [place] Care Teams Assembler Lay Ups Relationship Specialty Start Date End Date Yousuf Castro MD [address] [facility] [address] [place] [address] PCP - General Family Medicine 03/01/21 Shalonda Salmon PA [address] [facility] [address] [place] [address] Physician Supervisor Paper Coating Orthopedic Surgery 03/21/21
--- OUTSIDE RECORDS SUMMARY | 2025-05-27 03:13 | XMS_ITS | Clinical Summary ---
Author Organization [facility] Address [address] [place] [address] Care Team Providers Care Fiscal Services Manager Name Role Phone Yousuf Castro MD Primary Care Provider [phone] Source Comments [facility],non-owned Affiliates and Associated Physician Practices is amultiple site organization consisting of ambulatory clinics and hospital sitesin [place], [place], [place] and [place]. This disclosure is being madepursuant to the Care Everywhere program and may not contain all information available regarding this patient. Last updated 18.[facility] [employer] Allergies No known active allergies Medications * Be aware that medications may not be up to date on this document. Alwaysverify current medications with the patient. 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 No chest pain, fever or oxygen requirements and no concern for acute chest currently. Plan: FEN/GI -1.5x MIVF -Regular diet -Colace PO daily Heme/Onc: -Daily CBC CV/Resp: - Incentive spirometry -Continuous pulse ox -Montior for signs of acute chest. Inlcuding increased WOB, oxygen requirement, chest pain, fever Pain/Neuro -Morphine 6mg every 4 hours -Toradol 30mg every 6 hours Assessment & Plan (11/29/2016 5:29 PM WELLNESS CONSULTANT): Assessment: Donnell is a 16 yo male with sickle cell disease that is admitted for a pain crisis. No chest pain, fever or oxygen requirements and no concern for acute chest currently. Plan: FEN/GI -1.5x MIVF -Regular diet Heme/Onc: -Daily CBC CV/Resp: - Incentive spirometry -Continuous pulse ox -Montior for signs of acute chest. Inlcuding increased WOB, oxygen requirement, chest pain, fever Pain/Neuro -Morphine 6mg every 4 hours -Toradol 30mg every 6 hours Immunizations Immunization Administration Dates Next Due DTaP VACCINE IM (6wk-6yrs) 06/05/2005,,2000,03/17 HEP B VACCINE, PED/ADOL 08/12/2002,2000, HIB-HAEMOPHILUS INFLUENZAE B CONJUGATE VACCINE 04/12/2002,2000,2000 MENINGOCOCAL MENINGITIS 05/23/2013 MENINGOCOCCAL ACWY (MCV4P) VAC IM 12/10/2016 MMR 06/05/2005,04/12/2002 PNEUMOCOCCAL PPSV23 12/10/2016 POLIO IPV 06/05/2005, 0,2000,03/17 TDAP (7yrs+) 06/18/2011 VARICELLA 05/23/2013,04/12/2002 Family History Medical History Relation Name Comments Sickle Cell Trait Father Sickle Cell Trait Mother Anesthesia Reaction Neg Hx Relation Name Status Comments Father Mother Social History Tobacco Use Types Packs/Day Years Used Date Smoking Tobacco: Never Smokeless Tobacco: Never Alcohol Use Standard Drinks/Week Comments No 0 (1 standard drink = 0.6 oz pur e alcohol) Sex and Gender Information Value Date Recorded Sex Assigned at Not on file Legal Sex Male 12:46 PM WELLNESS CONSULTANT Gender Identity Not on file Sexual Orientation Not on file Last Filed Vital Signs Vital Sign Reading Time Taken Comments Blood Pressure 118/61 04/10/2017 1:48 PM CDT Pulse 54 04/10/2017 1:48 PM CDT Temperature 36.7 C (98 F) 04/10/2017 1:48 PM CDT Respiratory Rate 14 04/10/2017 1:48 PM CDT Oxygen Saturation 100% 04/10/2017 1:48 PM CDT Inhaled Oxygen Concentration - - Weight 80.9 kg (178 lb 5.6 oz) 04/10/2017 1:48 P M CDT Height 178.1 cm (5' 10.1) 04/10/2017 1:48 PM CD T Body Mass Index 25.52 04/10/2017 1:48 PM CDT Plan of Treatment Health Maintenance Due Date Last Done Comments HIV SCREENING 01/04/2015 HPV VACCINE (1 - Male 3-dose series) 01/04/2015 HEPATITIS C SCREENING 12/31/2017 DTAP/TDAP/TD VACCINES (6 - Td or Tdap) 06/18/2021 06/18/2011, 06/05/2005, 2000, Additional history exists COVID-19 VACCINE ( season) 2024 DEPRESSION SCREENING 10/26/2024 INFLUENZA VACCINE (#1) 2025 ZOSTER VACCINE (1 of 2) 01/04/2050 HIB VACCINE Completed 04/12/2002, 04/26, 2000 HEPATITIS B VACCINE Completed 08/12/2002, 2000, 2000 MENINGOCOCCAL GROUPS A/C/Y/W VACCINE Completed 12/10/2016, 05/23/2013 PNEUMOCOCCAL VACCINE Aged Out 12/10/2016 No long er eligible based on patient's age to complete this topic MENINGOCOCCAL (Group B) VACCINE SHARED DECISION-MAKING Aged Out No longer eligible based on patient's age to complete this topic Insurance [facility] ANTHEM Advance Directives * Full Code (Latest Code Status on File) Date Activated Date Inactivated Comments 11/29/2016 5:47 PM 11/30/2016 6:42 PM Care Teams Fiscal Services Manager Relationship Specialty Start Date End Date Yousuf Castro MD [address] [place] [address] PCP - General 09/06/11
[2025-05-27 03:21] VITALS: BP 144/93; PULSE 82; RESP 18; TEMP 36.9; O2SAT 100
[2025-05-27] MEDS: MORPHINE SULFATE (*CRX) 4 MG/ML INJ IV PUSH ×2 (03:33→05:59)
[2025-05-27 03:43] LABS: Hematocrit 37.6 % (42.0-52.0); Hemoglobin 12.9 g/dL (14.0-18.0); Immature Granulocyte Percent A 0.2 % (0-0.5); Immature Reticulocyte Fraction 31.3 % (3.0-15.9); Lymphocytes Absolute Auto 1.71 K/mm3 (0.9-3.2); Mean Corpuscular HGB Conc 34.3 g/dl (32-36); Mean Corpuscular Hemoglobin 25.2 pg (26-34); Mean Corpuscular Volume 73.6 fl (80-100); Nucleated Red Blood Cells Absolute Auto 0.000 K/mm3 (0.0-0.012); Nucleated Red Blood Cells Perc 0.0 % (0.0-0.2); Platelet Count Result 143 k/mm3 (150-375); Red Blood Count 5.11 M/mm3 (4.6-6.20); Reticulocyte Hemoglobin Conten 29.3 pg (28.2-36.6); White Blood Count 4.7 K/mm3 (4.5-10.0)
[2025-05-27 03:44] VITALS: BP 135/90; PULSE 86; RESP 16; O2SAT 98
[2025-05-27 03:45] VITALS: RESP 15
--- OUTSIDE RECORDS SUMMARY | 2025-05-27 03:55 | XMS_ITS | Clinical Summary ---
[facility] Address [address] [place] [address] Care Team Providers Care Brigadier Name Role Phone Yousuf Castro MD Primary Care Provider [phone] Allergies No known active allergies Medications HYDROcodone-sylvester [...] B VACCINES Completed 08/12/2002, 2000, 2000 Insurance [facility] [employer] ACCESS CHOICE Care Teams Brigadier Relationship Specialty Start Date End Date Yousuf Castro MD [address] [facility] [address] [place] [address] PCP - General Family Practice 07/23/22
--- OUTSIDE RECORDS SUMMARY | 2025-05-27 03:55 | XMS_ITS | Referral Summary ---
Author Organization [address] Address [address] [place] [address] Care Team Providers Care Proposal Analyst Name Role Phone Yousuf Castro MD Primary Care Provider Shalonda Salmon Unavailable [phone] Allergies No known active allergies Medications famotidine [...] on file Legal Sex Male 10:21 AM COMPETITIVE INTELLIGENCE MANAGER Gender Identity Not on file Sexual Orientation Not on file Last Filed Vital Signs Vital Sign Reading Time Taken Comments Blood Pressure 144/85 09/12/2021 3:55 PM COMPETITIVE INTELLIGENCE MANAGER Pulse 68 09/12/2021 3:55 PM COMPETITIVE INTELLIGENCE MANAGER Temperature 37.6 C (99.7 F) 04/06/2021 4:35 PM CDT Respiratory Rate 16 04/06/2021 9:30 PM CDT Oxygen Saturation 96% 04/06/2021 10: 05 PM CDT Inhaled Oxygen Concentration - - Weight 96.1 kg (211 lb 14.4 oz) 09/12/2021 3:55 PM COMPETITIVE INTELLIGENCE MANAGER Height 180.3 cm (5' 11) 09/12/2021 3:55 PM COMPETITIVE INTELLIGENCE MANAGER Body Mass Index 29.55 09/12/2021 3:55 PM COMPETITIVE INTELLIGENCE MANAGER Plan of Treatment Not on file Medical Devices Implanted Type Area Wood Polisher Device Identifier Shelf Expiration Date Model / Serial / Lot [employer] Ar-2324bcc Swivelock C 4.75mm 19.1mm Closed Eyelet Vent Story Suture - [id number] Implanted:Qty: 1 on 03/21/2021 by Hussain Marrufo MD at [facility] Right: Knee [employer] 11/25/2024 AR-2324BCC / / [id number] [employer] Ar-1588-Rtt Device Fxatn Tightrope Fibertag Acl Right Disp - [id number] Implanted:Qty: 1 on 03/21/2021 by Hussain Marrufo MD at [facility] Right: Knee [employer] 12/23/2025 AR-1588-RTT / / [id number] [employer] Ar-1588-Lovely Device Fxatn Tightrope Fibertag Acl Abs Disp - [id number] Implanted:Qty: 1 on 03/21/2021 by Hussain Marrufo MD at [facility] Right: Knee [employer] 12/23/2025 AR-1588-LOVELY / / [id number] [employer] Ar-1588tb Tightrope 12mm 8mm Attachable Slot Acl Button Fixation - [id number] Implanted:Qty: 1 on 03/21/2021 by Hussain Marrufo MD at [facility] Right: Knee [employer] 12/23/2025 AR-1588TB / / [id number] Insurance [employer] [place] [facility] ACCESS BLUE ACCESS [place] ACCESS OOS Care Teams Proposal Analyst Relationship Specialty Start Date End Date Yousuf Castro MD [address] [facility] [address] [place] [address] PCP - General Family Medicine 03/01/21 Shalonda Salmon PA [address] [facility] [address] [place] [address] Physician Assembler Knife Orthopedic Surgery 03/21/21
--- OUTSIDE RECORDS SUMMARY | 2025-05-27 03:55 | XMS_ITS | Clinical Summary ---
Author Organization [facility] Address [address] [place] [address] Care Team Providers Care Dyehouse Worker Name Role Phone Yousuf Castro MD Primary Care Provider [phone] Source Comments [facility],non-owned Affiliates and Associated Physician Practices is amultiple site organization consisting of ambulatory clinics and hospital sitesin [place], [place], [place] and [place]. This disclosure is being madepursuant to the Care Everywhere program and may not contain all information available regarding this patient. Last updated 18.[facility]Files Allergies No known active allergies Medications * [...] 11/29/201611/26 Assessment & Plan (11/30/2016 6:42 AM MOLD SHAKER): Assessment: Donnell is a 16 yo male [...] hours Assessment & Plan (11/29/2016 5:29 PM MOLD SHAKER): Assessment: Donnell is a 16 yo male [...] on file Legal Sex Male 12:46 PM MOLD SHAKER Gender Identity Not on file Sexual Orientation [...] patient's age to complete this topic Insurance [facility] ANTHEM Advance Directives * Full Code (Latest Code Status on File) Date Activated Date Inactivated Comments 11/29/2016 5:47 PM 11/30/2016 6:42 PM Care Teams Dyehouse Worker Relationship Specialty Start Date End Date Yousuf Castro MD [address] [place] [address] PCP - General 09/06/11
--- OUTSIDE RECORDS SUMMARY | 2025-05-27 03:55 | XMS_ITS | Clinical Summary ---
Author Organization [address] Address [address] [place] [address] Care Team Providers Care Compliance Clerk Name Role Phone Yousuf Castro MD Primary Care Provider Shalonda Salmon Unavailable [phone] Allergies No known active allergies Medications famotidine [...] on file Legal Sex Male 10:21 AM PROFESSOR OF FRENCH Gender Identity Not on file Sexual Orientation Not on file Obstetrics History Last Filed Vital Signs Vital Sign Reading Time Taken Comments Blood Pressure 144/85 09/12/2021 3:55 PM PROFESSOR OF FRENCH Pulse 68 09/12/2021 3:55 PM PROFESSOR OF FRENCH Temperature 37.6 C (99.7 F) 04/06/2021 4:35 PM CDT Respiratory Rate 16 04/06/2021 9:30 PM CDT Oxygen Saturation 96% 04/06/2021 10: 05 PM CDT Inhaled Oxygen Concentration - - Weight 96.1 kg (211 lb 14.4 oz) 09/12/2021 3:55 PM PROFESSOR OF FRENCH Height 180.3 cm (5' 11) 09/12/2021 3:55 PM PROFESSOR OF FRENCH Body Mass Index 29.55 09/12/2021 3:55 PM PROFESSOR OF FRENCH Plan of Treatment Health Maintenance Due Date [...] history exists Medical Devices Implanted Type Area Tile Layer Helper Device Identifier Shelf Expiration Date Model / Serial / Lot [employer] Ar-2324bcc Swivelock C 4.75mm 19.1mm Closed Eyelet Vent [place] Suture - [id number] Implanted:Qty: 1 on 03/21/2021 by Hussain Marrufo MD at [facility] Right: Knee [employer] 11/25/2024 AR-2324BCC / / [id number] [employer] Ar-1588-Rtt Device Fxatn Tightrope Fibertag Acl Right Disp - [id number] Implanted:Qty: 1 on 03/21/2021 by Hussain Marrufo MD at [facility] Right: Knee [employer] 12/23/2025 AR-1588-RTT / / [id number] [employer] Ar-1588-Lovely Device Fxatn Tightrope Fibertag Acl Abs Disp - [id number] Implanted:Qty: 1 on 03/21/2021 by Hussain Marrufo MD at [facility] Right: Knee [employer] 12/23/2025 AR-1588-LOVELY / / [id number] [employer] Ar-1588tb Tightrope 12mm 8mm Attachable Slot Acl Button Fixation - [id number] Implanted:Qty: 1 on 03/21/2021 by Hussain Marrufo MD at [facility] Right: Knee [employer] 12/23/2025 AR-1588TB / / [id number] Insurance [facility] ANTHEM ACCESS BLUE [employer] OOS [employer] [place] [employer] ACCESS OOS Care Teams Compliance Clerk Relationship Specialty Start Date End Date Yousuf Castro MD [address] [facility] [place] [address] PCP - General Family Medicine 03/01/21 Shalonda Salmon PA [address] [facility] [place] [address] Physician National Accounts Recruiter Orthopedic Surgery 03/21/21
[2025-05-27 04:00] LABS: Alanine Aminotransferase 69 U/L (6-50); Albumin Level 4.8 g/dL (3.5-5.1); Alkaline Phosphatase 66 U/L (38-126); Anion Gap 10 mmol/L (4-12); Aspartate Amino Transferase 42 U/L (17-59); Bilirubin,Total 2.2 mg/dL (0.2-1.3); Blood Urea Nitrogen 14 mg/dL (9-20); Calcium 9.6 mg/dL (8.4-10.2); Carbon Dioxide 27 mmol/L (22-30); Chloride 103 mmol/L (98-107); Estimated CRCL calculation 104 ml/min; Estimated Glomerular Filt Rate > 60; Glucose 96 mg/dL (65-110); Potassium 4.1 mmol/L (3.4-5.0); Sodium 140 mmol/L (137-145); Total Protein 8.4 g/dL (6.3-8.2)
[2025-05-27 04:01] LABS: Reticulocytes Absolute 0.24 10^6/uL (0.02-0.10)
[2025-05-27 04:02] LABS: Anisocytosis 1+; Hypochromasia 1+; Stomatocytes 1+; Target Cells 1+
[2025-05-27 04:03] LABS: Band Neutrophils Percent 0 % (0-6); Schistocytes None Seen
[2025-05-27] MEDS: KETOROLAC 15 MG/ML VIAL (*BKC) IV PUSH (04:32)
[2025-05-27] MEDS: LACTATED RINGERS 1,000 ML 999 ML IV CONT (04:32)
--- NOTE | 2025-05-27 05:37 | ED.GENADULT ---
HPI - General Adult General Chief complaint: Recheck/Abnormal Lab/Rx Stated complaint: sickle cell crisis Time Seen by Provider: 05/27/25 03:22 History of Present Illness HPI narrative: Patient with history of sickle cell SC presents here with what feels like a sickle cell crisis, has been almost a year since the last time he had this episode, he should try taking ibuprofen at home, has not tried anything at home yet. Sees his farm general manager as needed, last time 1 year ago. Thankfully no fevers, chest pain, shortness of breath. He does have pain to his right arm and leg Related Data Allergies Allergy/AdvReac Type Severity Reaction Status Date / Time No Known Allergies Allergy Verified 05/08/25 09:05 Review of Systems Review of Systems: All systems reviewed & are unremarkable except as noted in HPI and below PMFSH Past Medical History Medical History Sickle cell crisis Left wrist fracture Inguinal hernia Sickle cell anemia Surgical History Surgical History S/P ACL repair 2020 [place] teeth removed H/O inguinal hernia repair Social History Social History Smoking status: Never smoker Second hand tobacco smoke exposure: No Alcohol intake: never Substance use: never Substance use type: does not use Living arrangements: with family Additional living arrangements comments: Mother Occupation/Education: student Gender identity (if verbalized by the patient): Male Sexual Orientation (if Verbalized by the Patient): Straight or Heterosexual Exam Narrative: EXAMINATION OF ORGAN SYSTEMS/BODY AREAS: Constitutional: Vital signs per nursing GENERAL:[No acute distress, non-toxic appearing.] HEAD: Normal with no signs of head trauma. EYES: EOMI, conjunctiva normal ENT: Hearing grossly intact LUNGS: Nonlabored breathing. HEART: [Regular rate and rhythm] ABD: [Soft], [nontender to palpation] EXT: Normal range of motion SKIN: [No rashes or lesions.] NEURO: [Alert and oriented x 3. No gross focal sensory or strength deficits.] PSYCH: Normal affect Course Vital Signs Vital signs: Vital Signs Temperature 98.4 F 05/27/25 03:21 Pulse Rate 82 05/27/25 03:21 Respiratory Rate 18 05/27/25 03:21 Blood Pressure 144/93 H 05/27/25 03:21 Pulse Oximetry 100 05/27/25 03:21 Oxygen Delivery Room Air 05/27/25 03:21 Temperature 98.4 F 05/27/25 03:21 Pulse Rate 86 05/27/25 03:44 Respiratory Rate 15 05/27/25 03:45 Blood Pressure 135/90 05/27/25 03:44 Pulse Oximetry 98 05/27/25 03:44 Oxygen Delivery Room Air 05/27/25 03:21 Medical Decision Making MDM Narrative Medical decision making narrative: Patient with history of sickle cell SC presents here with what feels like a sickle cell crisis, has been almost a year since the last time he had this episode, he should try taking ibuprofen at home, has not tried anything at home yet. Sees his farm general manager as needed, last time 1 year ago. Thankfully no fevers, chest pain, shortness of breath. He does have pain to his right arm and leg He he is given fluids, Toradol, morphine, and on re-evaluation, states that the pain is now manageable. Agreeable to outpatient management, he will call his farm general manager for follow-up, and I will give him a few doses of pain medication for the next few days for home. Patient asked to return to the ER if his pain returns or anything else. Vital Signs Vital Signs: Vital Signs Temperature 98.4 F 05/27/25 03:21 Pulse Rate 82 05/27/25 03:21 Respiratory Rate 18 05/27/25 03:21 Blood Pressure 144/93 H 05/27/25 03:21 Pulse Oximetry 100 05/27/25 03:21 Oxygen Delivery Room Air 05/27/25 03:21 Temperature 98.4 F 05/27/25 03:21 Pulse Rate 86 05/27/25 03:44 Respiratory Rate 15 05/27/25 03:45 Blood Pressure 135/90 05/27/25 03:44 Pulse Oximetry 98 05/27/25 03:44 Oxygen Delivery Room Air 05/27/25 03:21 Lab Data 05/27/25 03:36 05/27/25 03:36 Labs: Lab Results 05/27/25 Range/Units 03:36 WBC 4.7 (4.5-10.0) K/mm3 RBC 5.11 (4.6-6.20) M/mm3 Hgb 12.9 L (14.0-18.0) g/dL Hct 37.6 L (42.0-52.0) % MCV 73.6 L (80-100) fl MCH 25.2 L (26-34) pg MCHC 34.3 (32-36) g/dl RDW 15.3 H (11.5-14.5) % Plt Count 143 L (150-375) k/mm3 MPV 10.4 (7.4-10.4) fl Immature Gran % (Auto) 0.2 (0-0.5) % Neut % (Auto) 54.8 (45.5-73.1) % Lymph % (Auto) 36.2 (18.3-44.2) % [place] % (Auto) 5.9 (2.6-8.5) % Eos % (Auto) 2.1 (0-4.4) % Baso % (Auto) 0.8 (0.2-1.2) % Lymph # (Auto) 1.71 (0.9-3.2) K/mm3 [place] # (Auto) 0.3 (0.1-0.6) K/mm3 Eos # (Auto) 0.1 (0-0.3) K/mm3 Baso # (Auto) 0.0 (0.0-0.1) K/mm3 Abs Immat Gran (auto) 0.01 (0.00-0.031) K/mm3 Absolute Neuts (auto) 2.6 (1.3-6.7) K/mm3 Absolute Nucleated RBC 0.000 (0.0-0.012) K/mm3 Band Neutrophils % 0 (0-6) % Nucleated RBC % 0.0 (0.0-0.2) % Platelet Estimate Decreased (Adequate) Hypochromasia 1+ Anisocytosis 1+ Target Cells 1+ Stomatocytes 1+ Schistocytes None seen Absolute Retic 0.24 H (0.02-0.10) 10^6/uL Percent Retic 4.70 H (0.7-4.3) % Immature Retic Fraction 31.3 H (3.0-15.9) % Retic Hgb Content 29.3 (28.2-36.6) pg Sodium 140 (137-145) mmol/L Potassium 4.1 (3.4-5.0) mmol/L Chloride 103 (98-107) mmol/L Carbon Dioxide 27 (22-30) mmol/L Anion Gap 10 (4-12) mmol/L BUN 14 (9-20) mg/dL Creatinine 1.30 (0.7-1.3) mg/dL Estim Creat Clear Calc 104 ml/min Estimated GFR > 60 (59 - ) Glucose 96 (65-110) mg/dL Calcium 9.6 (8.4-10.2) mg/dL Total Bilirubin 2.2 H (0.2-1.3) mg/dL AST 42 (17-59) U/L ALT 69 H (6-50) U/L Alkaline Phosphatase 66 (38-126) U/L Total Protein 8.4 H (6.3-8.2) g/dL Albumin 4.8 (3.5-5.1) g/dL Discharge Plan Discharge Clinical Impression: Sickle cell crisis Patient Disposition: Home Condition: Stable Instructions: Sickle Cell Crisis (ED) Additional Instructions: Please take the pain medications as prescribed and call your farm general manager for close follow-up in the next 2-3 days. You can always return to the emergency room for any further issues. Patient Language: Yi Prescriptions: New ketorolac 10 mg tablet 10 mg PO Q6H PRN (Reason: pain) Qty: 20 0RF Rx Instructions: maximum total duration of 5 days from all oral, intranasal, or parenteral formulations oxycodone 5 mg capsule 5 mg PO Q8H PRN (Reason: pain) Qty: 10 0RF No Action esomeprazole magnesium 40 mg capsule,delayed release(DR/EC) 40 mg PO DAILY Qty: 42 0RF Follow-up/Referrals: Yousuf Castro MD [Primary Care Provider] -
[2025-05-27 06:12] VITALS: BP 135/90; PULSE 76; RESP 17; O2SAT 100
[2025-05-27 06:23] VITALS: BP 135/90; PULSE 76; RESP 17; O2SAT 100
== END 2025-05-27 06:24 | disposition home or self-care (01) ==
PROVIDERS: Emergency Provider Emergency Medicine; PCP Family Medicine
DX: D57.219 Sickle-cell/Hb-C disease with crisis, unspecified (principal)
CPT/HCPCS: 36415; 80053; 85025; 85046; 96361; 96374; 96375; 96376; 99284; J1885; J2270; J7120